=== PATIENT | female | born 1985 | race Caucasian/White ===

== ENCOUNTER 2022-12-27 08:00 | Outpatient (RCR) | payer OTHER, SELFPAY | END 2023-02-20 11:28 | disposition home or self-care (01) | PROVIDERS: PCP Physician Assistant; Visit Provider Physician Assistant | DX: M22.01 Recurrent dislocation of patella, right knee (principal); M25.561 Pain in right knee; M25.562 Pain in left knee; G89.29 Other chronic pain; M62.81 Muscle weakness (generalized); Z51.89 Encounter for other specified aftercare | CPT/HCPCS: 97110; 97112; 97161 ==

== ENCOUNTER 2023-05-17 07:23 | Day surgery (SDC) | payer OTHER, SELFPAY ==
[2023-05-17] VITALS (14 sets, daily range): BP systolic 107–137; BP diastolic 79–98; PULSE 52–69; RESP 16; TEMP 36–36.7; O2SAT 96–100; BMI 30.2
[2023-05-17] MEDS: LACTATED RINGERS 1000 ML 1,000 ML 100 ML IV (08:01)
[2023-05-17] MEDS: SODIUM CHLORIDE 0.9 % (FLUSH) 10 ML SYRINGE IVF (08:02)
[2023-05-17 08:03] LABS: Ur HCG Qualitative* Negative (Negative)
[2023-05-17] MEDS: fentaNYL 100 MCG/2 ML inj IVP (08:19)
[2023-05-17] MEDS: MIDAZOLAM HCL 1 MG/ML inj IVP (08:19)
--- NOTE | 2023-05-17 08:30 | SUR.PREOP ---
TIME?OUT:?0819 PT/RN/MDA?VERIFICATION?OF?SURGICAL?SITE,?PROCEDURE,?AND?CONSENT OBTAINED?PRIOR?TO?INVASIVE?PROCEDURE.
--- NOTE | 2023-05-17 08:45 | CRLHL7_ITS ---
For Patients: As a result of the Century Cures Act, medical imaging exams and procedure reports are released immediately into your electronic medical record. You may view this report before your referring provider. If you have questions, please contact your health care provider. Indication: ACL reconstruction Technique: One fluoroscopic image of the right knee. Fluoroscopic time 4.9 seconds. IMPRESSION: Fluoroscopic guidance for ACL reconstruction. Dictated by Sathish Lopez MD @ 05/17/2023 11:34:19 AM (Electronically Signed)
[2023-05-17] MEDS: CEFAZOLIN 2 GM in 0.9 % SODIUM CHLORIDE Mini-bag 100 ML IVPB (09:50)
--- NOTE | 2023-05-17 11:53 | W.PM.NB ---
Nerve Block Nerve Block Time Seen by Provider: 08:25 Date Seen: 05/17/23 Type of block requested by surgeon for post-operative analgesia: popliteal Side: right Time out performed: Yes Verification of patient name: Yes Verification of date of : Yes Site marking: site marked Name of person performing procedure: Hayes Continuous monitoring Was continuous monitoring of O2 sat, B/P, hospital monitor, recorded every 15 minutes?: Yes Procedure Checklist: sterile prep, needles and gloves Ultrasound guided. Images saved: Yes Medications given in 5ml increments after negative aspiration: Ropivicaine %: 0.5 mL: 20 Needle gauge: 22 Patient tolerated procedure well: Yes Additional comments: Needle noted adjacent to nerve Block Charges Block Charge (with Pro Fee): Sciatic Nerve Use of Ultrasound Machine for Block: Yes- US Guidance/pain block
--- NOTE | 2023-05-17 11:53 | W.PM.NB ---
Nerve Block Nerve Block Time Seen by Provider: 08:25 Date Seen: 05/17/23 Type of block requested by surgeon for post-operative analgesia: femoral Side: right Time out performed: Yes Verification of patient name: Yes Verification of date of : Yes Site marking: site marked Name of person performing procedure: Hayes Continuous monitoring Was continuous monitoring of O2 sat, B/P, quality assurance monitor body, recorded every 15 minutes?: Yes Procedure Checklist: sterile prep, needles and gloves Ultrasound guided. Images saved: Yes Medications given in 5ml increments after negative aspiration: Ropivicaine %: 0.5 mL: 20 Needle gauge: 20 Decadron (mg): 10 Precedex (mcg): 25 Patient tolerated procedure well: Yes Additional comments: Needle noted adjacent to nerve Block Charges Block Charge (with Pro Fee): Femoral Nerve Use of Ultrasound Machine for Block: Yes- US Guidance/pain block
--- NOTE | 2023-05-17 11:54 | W.ANESCHARGE ---
Anesthesia Charges Start Date/Time Anesthesia Start Date: 05/17/23 Anesthesia Start Time: 09:48 Stop Date/Time Anesthesia Stop Date: 05/17/23 Anesthesia Stop Time: 12:05
--- NOTE | 2023-05-17 12:04 | W.ANESCHARGE ---
Anesthesia Charges Start Date/Time Anesthesia Start Date: 05/17/23 Anesthesia Start Time: 09:48 Stop Date/Time Anesthesia Stop Date: 05/17/23 Anesthesia Stop Time: 12:05
--- NOTE | 2023-05-17 13:06 | W.PM.H&PU ---
History & Physical Update History & Physical Update H&P Reviewed and patient assessed: No changes noted
--- NOTE | 2023-05-17 13:07 | PM.ORPRC ---
Procedure Note Date of procedure: 05/17/23 Procedure: PREOPERATIVE DIAGNOSIS: 1. Right knee ACL tear, chronic with recurrent instability 2. Right knee medial and lateral meniscus tear POSTOPERATIVE DIAGNOSIS: 1. Right knee ACL tear, chronic with recurrent instability [2. Right knee medial and lateral meniscus tear PROCEDURE: 1. Right knee arthroscopically assisted ACL reconstruction with graftlink quad tendon allograft 2. Right knee arthroscopic partial medial and meniscectomy 3. [id number] - intraoperative fluoroscopy up to 1 hour. SURGEON: Kervin Gamboa M.D. TRANSPORTATION REFRIGERATION TECHNICIAN: Reji Torres. Of note, an assistant manager retail was critical for this case to aid in patient positioning, knee manipulation, instrument exchange, and closure. ANESTHESIA: General plus adductor canal block EBL: 10 mL TOURNIQUET: 80 min at 300 torr IMPLANTS: Arthrex femoral tight rope button and tibial ABS button along with a backup on the tibial fixation with a 4.75 mm peek swivelock suture anchor. COMPLICATIONS: None evident INDICATIONS: The patient is a pleasant 30-year-old female. They have experienced a right knee injury resulting in knee instability. MRI was obtained and confirmed complete ACL disruption, consistent with the physical exam. The MRI also suggested medial and lateral meniscus tear. Given the findings, as well as the patient's desire to remain physically active with cutting/pivoting type activities, surgery was recommended. FINDINGS: Exam under anesthesia revealed positive Pradip's grade 2 B. Thud-clunk pivot shift. Stable posterior drawer. Stable to varus and valgus stress at 0 and 30?. The diagnostic arthroscopy showed empty wall sign consistent with ACL disruption/deficiency. Medial tear of the meniscus was noted to be complex extending from posterior horn to midbody. Lateral meniscus tear was also noted from the posterior root region to the midbody. Posterior root itself was intact. This was more of a complex tear with some horizontal component. DESCRIPTION OF PROCEDURE: After a thorough discussion of risks, benefits, and alternatives, the patient was brought to the operating room and placed upon the operating table. Induction of anesthesia was undertaken as previously noted. 2 g IV Ancef was administered within 1 hr of incision preoperatively. Appropriate time-out was performed identifying proper patient, site, and procedure. The right lower extremity was prepped and draped in the appropriate sterile fashion using ChloraPrep. The limb was exsanguinated and tourniquet inflated. Anterolateral and anteromedial portals were established with an 11 blade, and a diagnostic arthroscopy was performed. This identified the findings as noted above. Following the diagnostic arthroscopy, a partial medial and lateral meniscectomy was performed with a combination of basket forceps, [place] cautery, and torpedo shaver. After this, the meniscus was reprobed and found be stable. We then turned our attention to the ACL reconstruction. The graft had been thawing on the back table inside the package in warm saline. Once this was properly thawed, it was prepared with the passing sutures and the femoral tight rope button. It was then placed on tension, and sized. It was approximately a 9.5+ mm diameter graft. While the graft was being prepared, simultaneously, the remaining ACL stump was debrided with a combination of shaver and basket forceps. After evaluating the current fibers of the existing ACL stump, we drilled the tunnels in an independent manner for anatomic tunnel positioning. A 9.5 mm flip cutter was utilized for the femoral tunnel and for the tibial tunnel. Tunnel length on the femur was 37 mm and on the tibia was 42 mm. After preparing the graft and drilling tunnels, the graft was passed without difficulty and the femoral button was directly visualized to exit the femoral tunnel and the button was flipped. C-arm fluoroscopic imaging confirmed proper flipping of the femoral button and was apposed against the femoral cortex. The knee was then cycled 35+ times with tension on the graft. The tibial ABS button was then placed, and the tibial sutures secured over this with the knee in full extension. The white sutures were tied over top of the button, and all 4 suture strands were backed up through 4.75 mm peek SwiveLock suture anchor. Excellent tension on the graft was achieved. A Pradip test was performed again, and found to be stable grade 1A. The graft was reprobed on the inside of the knee and again found to be taut and stable. At this stage, closure was performed with 2-0 Vicryl and 4-0 Monocryl to close the subcutaneous and subcuticular layers, respectively. Dressings were applied, tourniquet deflated, and the T scope hinged knee brace was applied. The patient was awoken from anesthesia and transferred to the PACU in stable condition. PLAN: 1. Toe-touch weightbear operative extremity. Crutch / walker ambulation assistance PRN. 2. Ice, acetominophen and/or ibuprofen, and oxycodone for pain as needed. 3. Knee range of motion and quad sets/straight leg raise regularly 4. Follow up with me in 1-2 weeks for a wound check.
== END 2023-05-17 14:00 | disposition home or self-care (01) ==
PROVIDERS: Visit Provider Orthopaedic Surgery Sports Medicine
PROC: (CPT 27428; principal; 2023-05-17 08:45)
DX: S83.511A Sprain of anterior cruciate ligament of right knee, initial encounter (principal); S83.231D Complex tear of medial meniscus, current injury, right knee, subsequent encounter; S83.271A Complex tear of lateral meniscus, current injury, right knee, initial encounter; M23.51 Chronic instability of knee, right knee; G89.18 Other acute postprocedural pain
CPT/HCPCS: 29888; 29880; 01400; 64445; 64447; 73560; 76942; 81025; 84703; C1713; C1762; J0690; J1100; J2250; J2405; J2704; J2795; J3010; J7120; L1833

== ENCOUNTER 2023-05-19 10:47 | Emergency (ER) | payer OTHER, SELFPAY ==
[2023-05-19] VITALS (12 sets, daily range): BP systolic 161; BP diastolic 101; PULSE 52–76; RESP 24; O2SAT 95–100; BMI 30.3
--- NOTE | 2023-05-19 11:21 | CRLHL7_ITS ---
For Patients: As a result of the Cures Act, medical imaging exams and procedure reports are released immediately into your electronic medical record. You may view this report before your referring provider. If you have questions, please contact your health care provider. INDICATION: Shortness of breath TECHNIQUE: Chest 1 view COMPARISON: None FINDINGS: Cardiovascular and mediastinum: Heart size and vasculature are normal in caliber and appearance. Lungs and pleural spaces: Lungs are clear. No sign of infiltrate or mass. No sign of pleural effusion. No pneumothorax. Bones and soft tissues: No significant findings. IMPRESSION: No acute findings. Dictated by Sathish Lopez MD @ 05/19/2023 12:09:20 PM (Electronically Signed)
--- NOTE | 2023-05-19 11:24 | CRLHL7_ITS ---
For Patients: As a result of the Century Cures Act, medical imaging exams and procedure reports are released immediately into your electronic medical record. You may view this report before your referring provider. If you have questions, please contact your health care provider. INDICATION: Right leg pain after ACL repair COMPARISON: None. TECHNIQUE: Gonzales-scale, color, and duplex Doppler imaging of the examined veins. Compression and augmentation attempted where anatomically and clinically feasible. FINDINGS: Laterality: Right Examined veins: Common femoral, femoral, popliteal, peroneal, posterior tibial Proximal greater saphenous The examined veins are patent with normal color Doppler flow and a normal venous waveform on duplex Doppler. There is normal compression and normal augmentation of flow. The left common femoral vein was examined for comparison and is patent with normal color Doppler flow and normal venous waveform on duplex Doppler. IMPRESSION: No deep vein thrombosis in the right lower extremity. Dictated by Darlyn Jimenez MD @ 05/19/2023 1:28:58 PM (Electronically Signed)
--- NOTE | 2023-05-19 11:26 | ED_ITS ---
HPI - General Adult General Time Seen by Provider: 11:20 Date Seen: 05/19/23 Chief complaint: Extremity Pain/Injury, Lower Stated complaint: Short of breath, R leg pain Time Seen by Provider: 05/19/23 11:15 Source: patient and RN notes reviewed Mode of arrival: ambulatory Limitations: no limitations History of Present Illness HPI narrative: Rosanne is a 38-year-old female coming in with severe right knee pain, feeling short of breath. She was at physical therapy this morning after having an ACL repair on MondayMay 17. She is on oxycodone and Tylenol, has been using some ibuprofen. She called the orthopedic service last night because her pain was uncontrolled. She did go to physical therapy this morning and they were concerned about her pain being out of proportion to what they usually see, she is feeling short of breath but absolutely no chest pain. She has had no fevers. She did have spinal anesthesia. She is not on any contraceptives, has had no personal history of thromboembolic disease. Her mother however has had strokes and has had blood clots, Rosanne is not aware that there is any known hereditary cause for this but is unaware if her mom is been tested for this. She states the service told her to increase her ibuprofen. She is due for an oxycodone soon. Discussed with her that we would try some IV pain management to see if we can get her controlled. Related Data Home Medications Medication Instructions Recorded Confirmed cetirizine 10 mg tablet 10 mg PO DAILY PRN 12/30/22 05/17/23 fluoxetine 20 mg capsule 60 mg PO DAILY 12/30/22 05/17/23 fluticasone propionate 50 2 spray intranasal DAILY 05/15/23 05/17/23 mcg/actuation nasal spray,suspension (24 Hour Allergy Relief) naphazoline 0.025 %-pheniramine 1 drp ophthalmic (eye) QID PRN 05/15/23 05/17/23 0.3 % eye drops (Naphcon-A) tizanidine 4 mg capsule 4 mg PO Q6H PRN 05/15/23 05/17/23 Previous Rx's Medication Instructions Recorded oxycodone 5 mg tablet 5 mg PO Q4-8H PRN pain #25 tabs 05/17/23 hydromorphone 2 mg tablet 2 mg PO Q4-6H PRN pain #20 tabs 05/19/23 (Dilaudid) ketorolac 10 mg tablet 10 mg PO Q6H 5 days #20 tabs 05/19/23 ondansetron 4 mg disintegrating 4 mg PO Q6H PRN nausea and 05/19/23 tablet vomiting #20 tabs ondansetron 4 mg disintegrating 4 mg PO Q8H PRN nausea #20 tabs 05/19/23 tablet Allergies Allergy/AdvReac Type Severity Reaction Status Date / Time No Known Drug Allergies Allergy Verified 05/17/23 07:36 Review of Systems Status of ROS: Reports: 6 or more systems reviewed and unremarkable except as noted in History and below [facility] Medical History Anxiety ?F41.9 - Anxiety disorder, unspecified (ICD-10) Transfusion of blood during current hospitalization Severe pre-eclampsia affecting childbirth ?O14.14 - Severe pre-eclampsia complicating childbirth (ICD-10) hemorrhage ?O72.1 - Other immediate hemorrhage (ICD-10) Generalized anxiety disorder ?F41.1 - Generalized anxiety disorder (ICD-10) Dermoid cyst of both ovaries ?D27.0 - Benign neoplasm of right ovary (ICD-10) ?D27.1 - Benign neoplasm of left ovary (ICD-10) Arrest of dilation, delivered, current hospitalization ?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.1 - 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) Anemia due to acute blood loss ?D62 - Acute posthemorrhagic anemia (ICD-10) Depression ?F32.A - Depression, unspecified (ICD-10) Hypertension ?I10 - Essential (primary) hypertension (ICD-10) Surgical History Previous section ?Z98.891 - History of uterine scar from previous surgery (ICD-10) Status post primary low transverse section (06/19/21) ?Z98.891 - History of uterine scar from previous surgery (ICD-10) Status post ovarian cystectomy (06/19/21) ?Z98.890 - Other specified postprocedural states (ICD-10) ?Z87.42 - Personal history of other diseases of the female genital tract (ICD-10) Status post left oophorectomy (06/19/21) ?Z90.721 - Acquired absence of ovaries, unilateral (ICD-10) Family History Other Stroke Social History Smoking Status: Current every day smoker Do you use any of these nicotine containing products: Vaping Products How often do you have a drink containing alcohol: 2-4 times a month How many standard drinks containing alcohol do you have on a typical day: 3 or 4 How often do you have six or more drinks on one occasion: Never AUDIT-C Alcohol total score: 3 Non-prescribed substance use: marijuana (any form) Are you using contraception or practicing any form of control: No Exam Const: Vital Signs, click to edit/add: Vital Signs - 24 hr 05/19/23 10:52 05/19/23 11:55 05/19/23 12:00 Pulse Rate 59 L 55 L Pulse Rate [Pulse Oximeter] 76 Respiratory Rate 24 Blood Pressure [Ri ght Upper Arm] 161/101 H Pulse Oximetry 100 100 97 Oxygen Delivery Me thod Room Air 05/19/23 12:15 05/19/23 12:30 05/19/23 12:45 Pulse Rate 54 L 57 L 57 L Pulse Rate [Pulse Oximeter] Respiratory Rate Blood Pressure [Ri ght Upper Arm] Pulse Oximetry 95 97 98 Oxygen Delivery Me thod 05/19/23 13:16 05/19/23 13:30 05/19/23 13:45 Pulse Rate 74 52 L 55 L Pulse Rate [Pulse Oximeter] Respiratory Rate Blood Pressure [Ri ght Upper Arm] Pulse Oximetry 100 97 95 Oxygen Delivery Me thod Rosanne is a 38-year-old female that is alert interactive, no apparent distress but does not look comfortable. With movement she seems to have increased discomfort, states it is in her right leg. She is able to speak in complete sentences, oxygenating at 100% on room air while I am in with her. Speech is normal, no hoarseness. Sclera clear, conjugate gaze with equal pupils. Symmetrical facial function. No jugular venous distension, no neck masses. Is able to sit up, lungs sound clear, no wheezing or crackles, CV regular rate and rhythm without murmur. Abdomen is soft, nontender, nondistended, no masses noted. She has a brace on her right lower extremity, knee does look swollen but is not erythematous the port sites have bandages over them and there is no sig nificant drainage that AC through the bandages. Right lower extremity maybe is a little bit more swollen when I compare to the left but no erythema, distal vascularity and sensation is normal. Documenting provider has reviewed patient's vital signs: yes Course Course ED Course: We will start with a portable chest x-ray, she is reassuring with her oxygenation and she is not tachycardic. Will ultrasound her right lower extremity, get appropriate labs. We will place an IV, have her monitored on pulse oximetry. Will get a baseline EKG and will do a troponin in case there is thromboembolic disease to rule out or in any possibility of right heart strain. Other possibilities are possible hemidiaphragm elevation, side effects of the narcotics. She will get IV Toradol, IV Dilaudid to see if this will help control her pain. Doubtful that there is any infectious etiology at this point, she is quite early from surgery and clinically does not have any symptomatology of this. Reevaluation(s) Time of Reevaluation #1: 12:50 Reevaluation #1: Have reviewed reassuring labs, negative ultrasound preliminarily per the sports athletic trainer for DVT in her right lower extremity. We did review that her D-dimer was elevated, this can be from surgery but I cannot rule out an underlying pulmonary embolus. Without DVT in her right lower extremity, no hypoxia, no tachycardia, it is not very likely that she has an underlying pulmonary embolism. We did discuss the rationale of proceeding with chest CT PE protocol verses observation. To completely rule out any thromboembolic disease, patient would like to proceed. Will order the chest CT PE protocol. She still has some pain in her leg but is feeling much better after the IV Dilaudid and Toradol. Will try to talk to Orthopedics about her pain management. Nursing staff had been questioned by her as to better anti nausea medicine at home as well. Overall, she really just does not feel the oxycodone is helping her much and gives her nausea per report from nursing staff. Time of Reevaluation #2: 14:37 Reevaluation #2: Have reviewed her negative chest CT for any PE or other issues. She will ice when she gets home, have discussed pain management with her. Have stressed the importance that were going to switch to dilaudid for more severe pain right now, she has not use the oxycodone with this. We did discuss risk of diminishing respiratory drive and from narcotic overdose. She does demonstrate understanding I do trust that she will not use the oxycodone with the dilaudid. Her shortness of breath has improved with pain management interestingly. Consultations Consultation #1: Spoke with Reji NICHOLE from orthopedics, discussed pain management. He agrees with switching to dilaudid short term, I did agree to give 20 tabs short term for this as we have reviewed this together as part of her comprehensive care. Time: 13:11 Vital Signs Vital signs: Initial Vital Signs Pulse Rate 76 05/19/23 10:52 Pulse Rhythm Regular 05/19/23 10:52 Respiratory Rate 24 05/19/23 10:52 Blood Pressure 161/101 H 05/19/23 10:52 Blood Pressure Mean 121 H 05/19/23 10:52 Pulse Oximetry 100 05/19/23 10:52 Oxygen Delivery Method Room Air 05/19/23 10:52 Vital Signs Pulse Rate 76 05/19/23 10:52 Respiratory Rate 24 05/19/23 10:52 Blood Pressure 161/101 H 05/19/23 10:52 Pulse Oximetry 100 05/19/23 10:52 Oxygen Delivery Method Room Air 05/19/23 10:52 Pulse Rate 55 L 05/19/23 13:45 Respiratory Rate 24 05/19/23 10:52 Blood Pressure 161/101 H 05/19/23 10:52 Pulse Oximetry 95 05/19/23 13:45 Oxygen Delivery Method Room Air 05/19/23 10:52 Medical Decision Making Lab Data Lab results reviewed: Yes I reviewed the patient's lab results Labs: Lab Results 05/19/23 05/19/23 Range/Units 11:35 11:40 WBC 8.09 (4.50-11.00) K/uL RBC 4.51 (4.00-5.20) m/uL Hgb 13.5 (12.0-16.0) gm/dL Hct 40.0 (33.0-51.0) % MCV 89 (80-100) fL MCH 30 (26-34) pg MCHC 34 (32-36) gm/dL RDW Coeff of Destiny 12.5 (11.5-15.5) % Plt Count 266 (140-440) K/uL Neut % (Auto) 69.3 (42.0-72.0) % Lymph % (Auto) 18.9 L (20-44) % [place] % (Auto) 9.3 (0.0-11.0) % Eos % (Auto) 1.1 (0.0-7.0) % Baso % (Auto) 0.5 (0.0-3.0) % Neut # (Auto) 5.61 (1.7-7.0) K/uL Lymph # (Auto) 1.50 (0.90-2.90) K/uL [place] # (Auto) 0.80 (0.00-0.90) K/UL Eos # (Auto) 0.09 (0.00-0.50) K/uL Baso # (Auto) 0.04 (0.00-0.30) K/uL Abs Immat Gran (auto) 0.07 (0.00-0.30) K/uL Imm/Tot Granulo (auto) 0.9 % D-Dimer Quant (PE/DVT) 0.79 H (0.00-0.50) ug/ml Sodium 136 (135-149) mmol/L Potassium 3.9 (3.6-5.1) mmol/L Chloride 101 (96-114) mmol/L Carbon Dioxide 29 (20-32) mmol/L Anion Gap 6 L (7-15) mEq/L BUN 14 (5-24) mg/dL Creatinine 0.7 (0.5-1.5) mg/dL Estimated Creat Clear 121.79 Estimated GFR 113 ml/min Glucose 90 (60-115) mg/dL Calcium 9.3 (8.4-10.6) mg/dL Total Bilirubin 0.6 (0.1-1.5) mg/dL AST 23 (12-35) U/L ALT 19 (4-35) U/L Alkaline Phosphatase 51 (40-150) U/L Total Protein 7.1 (6.0-8.3) g/dL Albumin 4.2 (3.3-5.0) g/dL POC Troponin I 0.00 L (0.01-0.04) ng/ml Imaging Data Venous US: Attestation: I have reviewed the pertinent imaging results. Radiologist's impression: Patient: [facility] Facility:?[facility] Patient ID:?[id number] Site Patient ID:?[id number]. Site :?1985 Study:?US Extremity Right LEV-05/19/2023 12:55:30 PM Ordering Physician:?Romel Moy Final Report: INDICATION: Right leg pain after ACL repair COMPARISON: None. TECHNIQUE: Gonzales-scale, color, and duplex Doppler imaging of the examined veins. Compression and augmentation attempted where anatomically and clinically feasible. FINDINGS: Laterality: Right Examined veins: Common femoral, femoral, popliteal, peroneal, posterior tibial Proximal greater saphenous The examined veins are patent with normal color Doppler flow and a normal venous waveform on duplex Doppler. There is normal compression and normal augmentation of flow. The left common femoral vein was examined for comparison and is patent with normal color Doppler flow and normal venous waveform on duplex Doppler. IMPRESSION: No deep vein thrombosis in the right lower extremity. Dictated by Darlyn Jimenez MD @ 05/19/2023 1:28:58 PM (Electronic Signature) CT scan - chest: Attestation: I have reviewed the pertinent imaging results. Radiologist's impression: Patient: [facility] Facility:?[facility] Patient ID:?[id number] Site Patient ID:?[id number]. Site :?1985 Study:?CT Chest Angio W/ 95CC ISOVUE 370 PE STUDY-05/19/2023 1:23:26 PM Ordering Physician:?Romel Moy Final Report: INDICATION: SOB, elevated d-dimer. s/p acl surgery. TECHNIQUE: CT chest PE was acquired with 95 cc Isovue 370 IV contrast. COMPARISON: None. FINDINGS: Heart and vasculature: Contrast opacification of the pulmonary arterial tree is adequate. No sign of pulmonary embolism. Heart size is normal. Thoracic aorta and pulmonary artery are normal in caliber. Lungs and pleura: No suspicious nodules or infiltrates. No pleural effusions, pleural thickening, or pneumothorax. Lymph nodes/mediastinum: No mediastinal, hilar, or axillary adenopathy. Chest wall: No masses. Upper abdomen: No acute or significant findings. Bones: Unremarkable for age. IMPRESSION: No pulmonary embolism identified. No acute cardiopulmonary process identified. Please note that all CT scans at this facility use dose modulation, iterative reconstruction, and/or weight-based dosing when appropriate to reduce radiation dose to as low as reasonably achievable. Dictated by Danica Alonzo MD @ 05/19/2023 2:12:33 PM (Electronic Signature) ECG Data Attestation: I personally reviewed and interpreted this ECG as follows: (Sinus bradycardia, 52 beats per minute, no ischemia or arrhythmia noted. QT corrected 4 and 22 milliseconds.) Prior ECG tracings: not available for review Discharge Plan Discharge Clinical Impression: Shortness of breath, Post-operative pain Patient Disposition: Home, Self-Care Condition: Stable Instructions: Pain Management After Surgery (DC) Additional Instructions: Do recommend ice to this knee and elevation, certainly follow the postoperative recommendations from your surgeon. Tylenol 1000 mg 3 times daily baseline for pain. We are going to switch you to Toradol and dilaudid initially for more severe pain. Once you are done with the dilaudid and the Toradol, can switch back to oxycodone and ibuprofen. Toradol is an NSAID, do not use with other forms of NSAIDs like ibuprofen or Aleve. As we discussed, it is imperative that you do not use the dilaudid and the oxycodone together. Once you are done with the dilaudid, can go back on the oxycodone. Use Zofran as needed to control nausea. Narcotics certainly can be constipating. Do recommend going on MiraLax 17 g daily while using narcotics and add in senna per package instructions if needed to help control constipation. Activity Detail: Per surgery discharge. Prescriptions: New ketorolac 10 mg tablet 10 mg PO Q6H 5 Days Qty: 20 0RF ondansetron 4 mg tablet,disintegrating 4 mg PO Q6H PRN (Reason: nausea and vomiting) Qty: 20 0RF hydromorphone [Dilaudid] 2 mg tablet 2 mg PO Q4-6H PRN (Reason: pain) Qty: 20 0RF No Action cetirizine 10 mg tablet 10 mg PO DAILY PRN fluoxetine 20 mg capsule 60 mg PO DAILY fluticasone propionate [24 Hour Allergy Relief] 50 mcg/actuation spray,suspension 2 spray intranasal DAILY Rx Instructions: administer into each nostril tizanidine 4 mg capsule 4 mg PO Q6H PRN Rx Instructions: do not exceed 3 doses per 24 hrs Naphcon-A 0.025-0.3 % drops 1 drp ophthalmic (eye) QID PRN oxycodone 5 mg tablet 5 mg PO Q4-8H PRN (Reason: pain) Qty: 25 0RF ondansetron 4 mg tablet,disintegrating 4 mg PO Q8H PRN (Reason: nausea) Qty: 20 2RF Follow Up/Referrals: Provider,Not a Local [Primary Care Provider] - Stand Alone Forms: [employer] Info Instructions
[2023-05-19] MEDS: HYDROmorphone 0.5 mg/0.5 ml inj IVP ×2 (11:38→14:49)
[2023-05-19] MEDS: KETOROLAC 15 MG/ML inj IVP (11:38)
[2023-05-19] MEDS: ONDANSETRON 2 MG/ML inj 4 MG IVP (11:47)
[2023-05-19 12:02] LABS: Basophils Absolute Auto 0.04 K/uL (0.00-0.30); Basophils Percent Auto 0.5 % (0.0-3.0); Eosinophils Absolute Auto 0.09 K/uL (0.00-0.50); Eosinophils Percent Auto 1.1 % (0.0-7.0); Hemoglobin* 13.5 gm/dL (12.0-16.0); Immature Granulocytes Abs Auto 0.07 K/uL (0.00-0.30); Immature Granulocytes Pct Auto 0.9 %; Lymphocytes Percent Auto 18.9 % (20-44); Mean Corpuscular HGB Conc 34 gm/dL (32-36); Mean Corpuscular Hemoglobin 30 pg (26-34); Mean Corpuscular Volume 89 fL (80-100); Monocytes Percent Auto 9.3 % (0.0-11.0); Neutrophils Absolute Auto 5.61 K/uL (1.7-7.0); Neutrophils Percent Auto 69.3 % (42.0-72.0); Platelet Count* 266 K/uL (140-440); RDW Coefficient of Variation % 12.5 % (11.5-15.5); Red Blood Count 4.51 m/uL (4.00-5.20); White Blood Count* 8.09 K/uL (4.50-11.00)
[2023-05-19 12:06] LABS: Slide Review Reflex No
[2023-05-19 12:10] LABS: Albumin* 4.2 g/dL (3.3-5.0); Chloride* 101 mmol/L (96-114)
[2023-05-19 12:11] LABS: Potassium* 3.9 mmol/L (3.6-5.1); Sodium* 136 mmol/L (135-149)
[2023-05-19 12:13] LABS: Anion Gap 6 mEq/L (7-15); Aspartate Amino Transferase* 23 U/L (12-35); Bilirubin Total* 0.6 mg/dL (0.1-1.5); Carbon Dioxide* 29 mmol/L (20-32); Creatinine* 0.7 mg/dL (0.5-1.5); D Dimer Quantitative* 0.79 ug/ml (0.00-0.50); Est. Creatinine Clearance* 121.79; Estimated Glomerular Filt Rate 113 ml/min; Total Protein* 7.1 g/dL (6.0-8.3)
[2023-05-19 12:14] LABS: Alanine Aminotransferase* 19 U/L (4-35); Alkaline Phosphatase* 51 U/L (40-150); Blood Urea Nitrogen* 14 mg/dL (5-24); Calcium* 9.3 mg/dL (8.4-10.6); Glucose* 90 mg/dL (60-115)
--- NOTE | 2023-05-19 12:52 | CRLHL7_ITS ---
For Patients: As a result of the Century Cures Act, medical imaging exams and procedure reports are released immediately into your electronic medical record. You may view this report before your referring provider. If you have questions, please contact your health care provider. INDICATION: SOB, elevated d-dimer. s/p acl surgery. TECHNIQUE: CT chest PE was acquired with 95 cc Isovue 370 IV contrast. COMPARISON: None. FINDINGS: Heart and vasculature: Contrast opacification of the pulmonary arterial tree is adequate. No sign of pulmonary embolism. Heart size is normal. Thoracic aorta and pulmonary artery are normal in caliber. Lungs and pleura: No suspicious nodules or infiltrates. No pleural effusions, pleural thickening, or pneumothorax. Lymph nodes/mediastinum: No mediastinal, hilar, or axillary adenopathy. Chest wall: No masses. Upper abdomen: No acute or significant findings. Bones: Unremarkable for age. IMPRESSION: No pulmonary embolism identified. No acute cardiopulmonary process identified. Please note that all CT scans at this facility use dose modulation, iterative reconstruction, and/or weight-based dosing when appropriate to reduce radiation dose to as low as reasonably achievable. Dictated by Danica Alonzo MD @ 05/19/2023 2:12:33 PM (Electronically Signed)
== END 2023-05-19 15:05 | disposition home or self-care (01) ==
PROVIDERS: Emergency Provider Family Medicine
DX: R06.02 Shortness of breath (principal); G89.18 Other acute postprocedural pain
CPT/HCPCS: 36415; 71045; 71275; 80053; 84484; 85025; 85379; 93005; 93971; 94761; 96374; 96375; 99284; 99285; J1170; J1885; J2405; Q9967

== ENCOUNTER 2023-05-26 10:06 | Outpatient (CLI) | payer OTHER, SELFPAY | END 2023-05-26 10:07 | disposition home or self-care (01) | PROVIDERS: Visit Provider Obstetrics & Gynecology | DX: N92.6 Irregular menstruation, unspecified (principal) | CPT/HCPCS: 82627; 82670; 83001; 83002; 83498; 84146; 84443 ==

== ENCOUNTER 2023-06-01 10:55 | Outpatient (CLI) | payer OTHER, SELFPAY ==
--- NOTE | 2023-06-01 11:00 | CRLHL7_ITS ---
For Patients: As a result of the Century Cures Act, medical imaging exams and procedure reports are released immediately into your electronic medical record. You may view this report before your referring provider. If you have questions, please contact your health care provider. INDICATION: irregular menses COMPARISON: none TECHNIQUE: 2D simmons scale and color Doppler images were acquired of the pelvis using a transabdominal and transvaginal approach. FINDINGS: Sonographic images demonstrate a normal size and smooth outer contour of the uterus. Uterus measures 7.1 cm in length by 3.8 cm in AP diameter by 5.2 cm in transverse dimension. The myometrium has a normal uniform echotexture. The endometrial lining appears heterogeneous and measures 14 mm in composite thickness. The right ovary measures 5.7 x 2.8 x 3.9 cm in size and the left ovary is absent. The right ovary demonstrates normal arterial and venous blood flow on color Doppler analysis. Complex cyst is present within the right ovary containing internal echoes measuring 3.2 x 2.5 x 3.7 cm. Simple anechoic right ovarian cyst also present measuring 4.3 x 2.0 x 3.7 cm. There are no suspicious fluid collections within the cul-de-sac. IMPRESSION: Thickened and mildly heterogeneous endometrium measuring 14 millimeters. Hemorrhagic right ovarian cyst measuring 3.7 cm. Simple right ovarian cyst measuring 4.3 cm. Dictated by Sathish Lopez MD @ 06/01/2023 12:07:15 PM (Electronically Signed)
== END 2023-06-01 10:56 | disposition home or self-care (01) ==
LOC: US 10:55
PROVIDERS: Visit Provider Obstetrics & Gynecology
DX: N92.6 Irregular menstruation, unspecified (principal); R93.89 Abnormal findings on diagnostic imaging of other specified body structures; N83.201 Unspecified ovarian cyst, right side; Z86.018 Personal history of other benign neoplasm
CPT/HCPCS: 76830; 76856; 93976

== ENCOUNTER 2023-06-06 08:05 | Emergency (ER) | payer OTHER, SELFPAY ==
[2023-06-06 08:09] VITALS: BP 144/106; PULSE 93; RESP 14; TEMP 35.7; O2SAT 99; BMI 33.5
--- NOTE | 2023-06-06 08:59 | CRLHL7_ITS ---
For Patients: As a result of the Century Cures Act, medical imaging exams and procedure reports are released immediately into your electronic medical record. You may view this report before your referring provider. If you have questions, please contact your health care provider. INDICATION: Severe back pain. Radiculopathy. Recent spinal anesthesia. TECHNIQUE: Multiplanar multisequence noncontrast MR images acquired through the lumbar spine. COMPARISON: None. FINDINGS: Transitional lumbosacral anatomy. For purposes of this exam, the transitional segment is designated S1 and demonstrates lumbarization. Rudimentary S1-2 disc space. The lumbar lordosis is preserved. Vertebral heights maintained. No acute fracture or spondylolisthesis. No T1 hypointense marrow replacing lesions. Normal conus terminates at L1-2. T12-L1 through L4-5: No spinal canal or neural foraminal narrowing. L5-S1: Moderate disc degeneration. Disc height loss. [id number] vertebral body edema. Right central/subarticular disc protrusion measuring 9 mm in anteroposterior dimension severely narrows the right lateral recess with likely impingement of traversing right S1 nerve roots. Mild spinal canal narrowing. No neural foraminal narrowing. Cholelithiasis. IMPRESSION: 1. Transitional lumbosacral anatomy. For purposes of this exam, the transitional segment is designated S1 and demonstrates lumbarization. Rudimentary S1-2 disc space. 2. At L5-S1, right central/subarticular disc protrusion likely impinges traversing right S1 nerve roots. Mild spinal canal narrowing. Mild to moderate discogenic vertebral body edema. 3. Cholelithiasis. Dictated by Aditya Giron MD @ 06/06/2023 12:23:28 PM (Electronically Signed)
[2023-06-06] MEDS: MORPHINE 4 MG/ML INJ IM (09:09)
[2023-06-06] MEDS: KETOROLAC 30 MG/ML inj IM (09:11)
[2023-06-06 10:29] VITALS: BP 135/80; PULSE 51; RESP 16; O2SAT 97
--- NOTE | 2023-06-06 10:34 | ED.NURSE ---
Pt reports pain is improved, rates as 7/10 now.
--- NOTE | 2023-06-06 11:08 | ED.NURSE ---
Pt to imaging, MRI questionnaire complete.
--- NOTE | 2023-06-06 11:17 | ED.GENADULT ---
HPI - General Adult General Date Seen: 06/06/23 Chief complaint: Back Injury/Pain Stated complaint: back pain Time Seen by Provider: 06/06/23 08:29 Source: patient Mode of arrival: ambulatory Limitations: no limitations History of Present Illness HPI narrative: Patient is a 38-year-old who had an ACL repair recently, had had trouble with pain in her knee but it is feeling better. She had spinal anesthesia for that procedure which was I believe on May 17. She says for the past week and a half for so she has been having trouble with back pain in the right low back with radiation down her leg into her toes. No numbness or weakness. No fevers. She says she had trouble with back pain prior to this but did not have leg pain previously. Over the past week and half she says the pain has become severe to the point that she is just not able to manage it. She was on Dilaudid for pain control after her knee procedure because oxycodone was not helping, she says she has some tizanidine left at home but does not have any more narcotics left. Her last prescription was on May 29 for 7 Dilaudid 2 mg tablets. Review of the database she has several prescriptions since her knee procedure but does not have any other narcotic prescriptions. Related Data Home Medications Medication Instructions Recorded Confirmed cetirizine 10 mg tablet 10 mg PO DAILY PRN 12/30/22 05/26/23 fluoxetine 20 mg capsule 60 mg PO DAILY 12/30/22 05/26/23 fluticasone propionate 50 2 spray intranasal DAILY 05/15/23 05/26/23 mcg/actuation nasal spray,suspension (24 Hour Allergy Relief) tizanidine 4 mg capsule 4 mg PO Q6H PRN 05/15/23 06/06/23 Previous Rx's Medication Instructions Recorded ketorolac 10 mg tablet 10 mg PO Q6H 5 days #20 tabs 05/19/23 ondansetron 4 mg disintegrating 4 mg PO Q8H PRN nausea #20 tabs 05/19/23 tablet tizanidine 4 mg capsule 4 mg PO BID PRN muscle spasticity 06/06/23 #10 caps Allergies Allergy/AdvReac Type Severity Reaction Status Date / Time No Known Drug Allergies Allergy Verified 05/26/23 08:50 Review of Systems Status of ROS: Reports: 6 or more systems reviewed and unremarkable except as noted in History and below [facility] Medical History (Updated 06/06/23 @ 12:53 by Nisha De La Paz MD) Anxiety ?F41.9 - Anxiety disorder, unspecified (ICD-10) Transfusion of blood during current hospitalization Severe pre-eclampsia affecting childbirth ?O14.14 - Severe pre-eclampsia complicating childbirth (ICD-10) hemorrhage ?O72.1 - Other immediate hemorrhage (ICD-10) Generalized anxiety disorder ?F41.1 - Generalized anxiety disorder (ICD-10) Dermoid cyst of both ovaries ?D27.0 - Benign neoplasm of right ovary (ICD-10) ?D27.1 - Benign neoplasm of left ovary (ICD-10) Arrest of dilation, delivered, current hospitalization ?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Z98.890 - Other specified postprocedural states (ICD-10) ?Z87.42 - Personal history of other diseases of the female genital tract (ICD-10) Status post left oophorectomy (06/19/21) ?Z90.721 - Acquired absence of ovaries, unilateral (ICD-10) Family History Other Stroke Social History Smoking Status: Current every day smoker Do you use any of these nicotine containing products: Vaping Products How often do you have a drink containing alcohol: 2-4 times a month How many standard drinks containing alcohol do you have on a typical day: 3 or 4 How often do you have six or more drinks on one occasion: Never AUDIT-C Alcohol total score: 3 Non-prescribed substance use: marijuana (any form) Are you using contraception or practicing any form of control: No Exam Narrative: Exam Narrative: Vital signs as noted above. In general, an alert, well-appearing patient. Head: Normocephalic, atraumatic. Eyes: Pupils are equal reactive. Extraocular movements are full. Conjunctivae are normal. ENT: Mucous membranes are moist. Neck: Supple without lymphadenopathy. Heart: Regular rate and rhythm. No murmur or rub. Lungs: Clear bilaterally. No increased work of breathing, crackles or wheezes. Abdomen: Soft and nontender. No organomegaly. Extremities: Well perfused. No edema. No calf tenderness. Pulses intact. Brace noted on right knee. Neurologic: Patient is alert and oriented to person and place. Speech is fluent. Face is symmetric. Moves all extremities equally. Strength is 5 of 5 in bilateral lower extremities. Sensation is altered in the right leg, which she says is been present since surgery and is gradually improving. Affect: Normal. Skin: Warm and dry. Well perfused. Const: Vital Signs, click to edit/add: Vital Signs - 24 hr 06/06/23 08:09 06/06/23 10:29 06/06/23 12:10 Temperature 96.3 F L Pulse Rate [Pulse Oximeter] 93 51 L 61 Respiratory Rate 14 16 16 Blood Pressure [Ri ght Upper Arm] 144/106 H 135/80 136/82 Pulse Oximetry 99 97 98 Oxygen Delivery Me thod Room Air Room Air Room Air Documenting provider has reviewed patient's vital signs: yes Course Course ED Course: I gave IM morphine and IM Toradol. I elected to do a lumbar spine MRI today secondary to her symptoms of radiculopathy and recent spinal anesthesia. By my review the MRI showed disc herniation at L5-S1, final radiology read as follows:IMPRESSION: 1. Transitional lumbosacral anatomy. For purposes of this exam, the transitional segment is designated S1 and demonstrates lumbarization. Rudimentary S1-2 disc space. 2. At L5-S1, right central/subarticular disc protrusion likely impinges traversing right S1 nerve roots. Mild spinal canal narrowing. Mild to moderate discogenic vertebral body edema. 3. Cholelithiasis. I do think this is likely the explanation for her pain. There are no concerning findings other than the disc. I have recommended pain management with ibuprofen and Tylenol 3 times daily, I gave her 10 additional oxycodone to use judiciously and gave her some additional tizanidine as well. I also recommended that we try another course of steroid which she is willing to do. We talked about the possibility of an injection being helpful if she does not seem to be improving with time. She is interested in looking into that so I have asked her to follow-up in clinic at some point this week to review options. Return for weakness, numbness, bowel bladder changes. Vital Signs Vital signs: Initial Vital Signs Temperature 96.3 F L 06/06/23 08:09 Temperature Source Temporal Artery Scan 06/06/23 08:09 Pulse Rate 93 06/06/23 08:09 Pulse Rhythm Regular 06/06/23 08:09 Respiratory Rate 14 06/06/23 08:09 Blood Pressure 144/106 H 06/06/23 08:09 Blood Pressure Mean 118 H 06/06/23 08:09 Blood Pressure Position Sitting 06/06/23 08:09 Pulse Oximetry 99 06/06/23 08:09 Oxygen Delivery Method Room Air 06/06/23 08:09 Vital Signs Temperature 96.3 F L 06/06/23 08:09 Pulse Rate 93 06/06/23 08:09 Respiratory Rate 14 06/06/23 08:09 Blood Pressure 144/106 H 06/06/23 08:09 Pulse Oximetry 99 06/06/23 08:09 Oxygen Delivery Method Room Air 06/06/23 08:09 Temperature 96.3 F L 06/06/23 08:09 Pulse Rate 61 06/06/23 12:10 Respiratory Rate 16 06/06/23 12:10 Blood Pressure 136/82 06/06/23 12:10 Pulse Oximetry 98 06/06/23 12:10 Oxygen Delivery Method Room Air 06/06/23 12:10 Discharge Plan Discharge Clinical Impression: Lumbar disc herniation Patient Disposition: Home, Self-Care Condition: Improved Instructions: Lumbar Disc Herniation (ED) Additional Instructions: Ibuprofen 400 mg plus Tylenol 1000 mg 3 times daily with food. Oxycodone if needed for more significant pain. Tizanidine may be helpful at night. Please make an appointment to follow up with the [facility] to discuss further options such as injection. Prescriptions: New tizanidine 4 mg capsule 4 mg PO BID PRN (Reason: muscle spasticity) Qty: 10 0RF No Action cetirizine 10 mg tablet 10 mg PO DAILY PRN fluoxetine 20 mg capsule 60 mg PO DAILY fluticasone propionate [24 Hour Allergy Relief] 50 mcg/actuation spray,suspension 2 spray intranasal DAILY Rx Instructions: administer into each nostril tizanidine 4 mg capsule 4 mg PO Q6H PRN Rx Instructions: do not exceed 3 doses per 24 hrs ketorolac 10 mg tablet 10 mg PO Q6H 5 Days Qty: 20 0RF ondansetron 4 mg tablet,disintegrating 4 mg PO Q8H PRN (Reason: nausea) Qty: 20 2RF Follow Up/Referrals: Provider,Not a Local [Primary Care Provider] - Stand Alone Forms: [email or web address] Info Instructions
[2023-06-06 12:10] VITALS: BP 136/82; PULSE 61; RESP 16; O2SAT 98
[2023-06-06] MEDS: predniSONE 20 MG TABLET 60 MG PO (12:49)
[2023-06-06] MEDS: OXYCODONE 5 MG TABLET PO (12:49)
== END 2023-06-06 13:01 | disposition home or self-care (01) ==
PROVIDERS: Emergency Provider Emergency Medicine
DX: M51.26 Other intervertebral disc displacement, lumbar region (principal)
CPT/HCPCS: 72148; 96372; 97110; 97140; 99284; A9270; J1885; J2270; J7512

== ENCOUNTER 2023-06-15 18:52 | Emergency (ER) | payer OTHER, SELFPAY ==
[2023-06-15 19:13] VITALS: BP 148/107; PULSE 73; RESP 18; TEMP 36.4; O2SAT 98; BMI 29.3
--- NOTE | 2023-06-15 19:31 | CRLHL7_ITS ---
For Patients: As a result of the Cures Act, medical imaging exams and procedure reports are released immediately into your electronic medical record. You may view this report before your referring provider. If you have questions, please contact your health care provider. Indication: Right lateral malleolus pain. Technique: Right ankle three views. Comparison: None. Findings: No acute fracture or dislocation. No additional osseous abnormality. Soft tissues as imaged are unremarkable. Impression: No acute osseous abnormality. Dictated by Jamin Gomez MD @ 06/15/2023 8:08:11 PM (Electronically Signed)
[2023-06-15] MEDS: MORPHINE 4 MG/ML INJ IM (19:54)
--- NOTE | 2023-06-15 20:27 | ED.LOWEXIN ---
HPI - Extremity Injury (Lower) General Date Seen: 06/15/23 Chief Complaint: Extremity Pain/Injury, Lower Stated Complaint: Possible blood clot R foot Time Seen by Provider: 06/15/23 19:19 Source: patient Mode of arrival: ambulatory Limitations: no limitations History of Present Illness HPI Narrative: Patient is a 38-year-old female presenting to emergency department for right ankle pain. Of note she had a right ACL repaired 4 months ago states since then she has been having issues with pain to her right ankle also. She has been doing PT and has been having a large amount of pain to it. Most of the pain is is at the lateral malleolus. She was concerned she could be having a blood clot because she says her right foot feels notably cold compared to the left. There is some swelling around the ankle. Says it does feel tingly but this has been going on since the surgery. She did have an ultrasound performed almost 4 weeks ago that was normal. Denies any other injuries that she is aware of. Related Data Home Medications Medication Instructions Recorded Confirmed cetirizine 10 mg tablet 10 mg PO DAILY PRN 12/30/22 05/26/23 fluoxetine 20 mg capsule 60 mg PO DAILY 12/30/22 05/26/23 fluticasone propionate 50 2 spray intranasal DAILY 05/15/23 05/26/23 mcg/actuation nasal spray,suspension (24 Hour Allergy Relief) tizanidine 4 mg capsule 4 mg PO Q6H PRN 05/15/23 06/06/23 Previous Rx's Medication Instructions Recorded ketorolac 10 mg tablet 10 mg PO Q6H 5 days #20 tabs 05/19/23 ondansetron 4 mg disintegrating 4 mg PO Q8H PRN nausea #20 tabs 05/19/23 tablet tizanidine 4 mg capsule 4 mg PO BID PRN muscle spasticity 06/06/23 #10 caps Allergies Allergy/AdvReac Type Severity Reaction Status Date / Time No Known Drug Allergies Allergy Verified 05/26/23 08:50 Review of Systems Narrative: Otherwise negative unless stated in HPI PFSH PFSH Medical History Anxiety ?F41.9 - Anxiety disorder, unspecified (ICD-10) Transfusion of blood during current hospitalization Severe pre-eclampsia affecting childbirth ?O14.14 - Severe pre-eclampsia complicating childbirth (ICD-10) hemorrhage ?O72.1 - Other immediate hemorrhage (ICD-10) Generalized anxiety disorder ?F41.1 - Generalized anxiety disorder (ICD-10) Dermoid cyst of both ovaries ?D27.0 - Benign neoplasm of right ovary (ICD-10) ?D27.1 - Benign neoplasm of left ovary (ICD-10) Arrest of dilation, delivered, current hospitalization ?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Z98.890 - Other specified postprocedural states (ICD-10) ?Z87.42 - Personal history of other diseases of the female genital tract (ICD-10) Status post left oophorectomy (06/19/21) ?Z90.721 - Acquired absence of ovaries, unilateral (ICD-10) Family History Other Stroke Social History Smoking Status: Current every day smoker Do you use any of these nicotine containing products: Vaping Products Second hand tobacco smoke exposure: No How often do you have a drink containing alcohol: 2-4 times a month How many standard drinks containing alcohol do you have on a typical day: 3 or 4 How often do you have six or more drinks on one occasion: Never AUDIT-C Alcohol total score: 3 Non-prescribed substance use: marijuana (any form) Are you using contraception or practicing any form of control: No Exam Narrative: Exam Narrative: Const: Well-nourished, Well-developed, in mild distress Eyes: PERRL, no conjunctival injection, and symmetrical lids HENT: Atraumatic external nose and ears. Moist mucous membranes. Extremities: Strong dorsalis pedis pulse bilateral lower extremities, cap refills under 2 seconds bilaterally lower extremities MSK:Extremities w/o deformity, Normal Active ROM there is tenderness to the right lateral malleolus both anterior and posterior with some bruising noted. Skin: Warm, Dry. No rashes or lesions. Neuro: Normal Muscle tone, No focal neurological deficits. Psych: Awake, Alert, & Oriented x3. Appropriate mood and affect. Const: Vital Signs, click to edit/add: Vital Signs - 24 hr 06/15/23 19:13 Temperature 97.5 F L Pulse Rate [Pulse Oximeter] 73 Respiratory Rate 18 Blood Pressure [Le ft Upper Arm] 148/107 H Pulse Oximetry 98 Oxygen Delivery Me thod Room Air Course Vital Signs Vital signs: Initial Vital Signs Temperature 97.5 F L 06/15/23 19:13 Temperature Source Temporal Artery Scan 06/15/23 19:13 Pulse Rate 73 06/15/23 19:13 Respiratory Rate 18 06/15/23 19:13 Blood Pressure 148/107 H 06/15/23 19:13 Blood Pressure Mean 120 H 06/15/23 19:13 Blood Pressure Position Sitting 06/15/23 19:13 Pulse Oximetry 98 06/15/23 19:13 Oxygen Delivery Method Room Air 06/15/23 19:13 Vital Signs Temperature 97.5 F L 06/15/23 19:13 Pulse Rate 73 06/15/23 19:13 Respiratory Rate 18 06/15/23 19:13 Blood Pressure 148/107 H 06/15/23 19:13 Pulse Oximetry 98 06/15/23 19:13 Oxygen Delivery Method Room Air 06/15/23 19:13 Temperature 97.5 F L 06/15/23 19:13 Pulse Rate 73 06/15/23 19:13 Respiratory Rate 18 06/15/23 19:13 Blood Pressure 148/107 H 06/15/23 19:13 Pulse Oximetry 98 06/15/23 19:13 Oxygen Delivery Method Room Air 06/15/23 19:13 MDM - Extremity Injury (Lower) MDM Narrative Medical decision making narrative: Patient is a 38-year-old female presenting for right ankle pain has been going on for almost month. She had knee surgery 1 month ago. Denies any other injuries that she is aware of. She is concerned she could have a blood clot but that seems unlikely considering there is only swelling around the ankle. She has thinks her right foot is colder than the left but on my examination they feel about the same. She was given a dose of IM morphine. We did do an x-ray of the right ankle that shows no acute abnormalities. Cannot say for surgeon was causing her pain but again it seems unlikely to be a blood clot. She could have sprained the foot while she had the right lower extremity block in has not given it adequate time to heal. She was offered an ankle brace but states she has appointment with orthopedics tomorrow morning and will hold off on the brace right now. Patient will be discharged home and she is agreeable with this plan Discharge Plan Discharge Clinical Impression: Ankle pain, right Qualifiers: Chronicity: acute Qualified Code(s): M25.571 - Pain in right ankle and joints of right foot Patient Disposition: Home, Self-Care Condition: Stable Instructions: Arthralgia (ED) Additional Instructions: Follow-up with your orthopedics provider. Return for new worsening symptoms. Continue to take your home pain medication as directed Prescriptions: No Action cetirizine 10 mg tablet 10 mg PO DAILY PRN fluoxetine 20 mg capsule 60 mg PO DAILY tizanidine 4 mg capsule 4 mg PO BID PRN (Reason: muscle spasticity) Qty: 10 0RF fluticasone propionate [24 Hour Allergy Relief] 50 mcg/actuation spray,suspension 2 spray intranasal DAILY Rx Instructions: administer into each nostril tizanidine 4 mg capsule 4 mg PO Q6H PRN Rx Instructions: do not exceed 3 doses per 24 hrs ketorolac 10 mg tablet 10 mg PO Q6H 5 Days Qty: 20 0RF ondansetron 4 mg tablet,disintegrating 4 mg PO Q8H PRN (Reason: nausea) Qty: 20 2RF Follow Up/Referrals: Provider,Not a Local [Primary Care Provider] - Stand Alone [facility] Inst[facility]
== END 2023-06-15 20:47 | disposition home or self-care (01) ==
PROVIDERS: Emergency Provider Student in an Organized Health Care Education/Training Program
DX: M25.571 Pain in right ankle and joints of right foot (principal)
CPT/HCPCS: 73610; 96372; 99282; 99283; J2270

== ENCOUNTER 2023-06-19 17:41 | Emergency (ER) | payer OTHER, SELFPAY ==
[2023-06-19 17:57] VITALS: BP 123/87; PULSE 84; RESP 22; TEMP 36.8; O2SAT 99
--- NOTE | 2023-06-19 18:18 | CRLHL7_ITS ---
For Patients: As a result of the Century Cures Act, medical imaging exams and procedure reports are released immediately into your electronic medical record. You may view this report before your referring provider. If you have questions, please contact your health care provider. INDICATION: Leg pain and swelling. TECHNIQUE: Ultrasound venous duplex lower right extremity. Compression venous exam was performed using simmons-scale, color Doppler, and spectral Doppler analysis. COMPARISON: None. FINDINGS: Deep veins: Sonographic imaging demonstrates the right common femoral, deep femoral, superficial femoral, popliteal, posterior tibial and the contralateral left common femoral veins to be fully compressible with normal color Doppler blood flow. Superficial veins: Greater saphenous vein is fully compressible. No popliteal cyst. IMPRESSION: No DVT in the right lower extremity. Dictated by Danica Alonzo MD @ 06/19/2023 7:46:05 PM (Electronically Signed)
--- NOTE | 2023-06-19 18:21 | ED_ITS ---
HPI - General Adult General Chief complaint: Extremity Pain/Injury, Lower Stated complaint: R leg and back pain Time Seen by Provider: 06/19/23 18:09 History of Present Illness HPI narrative: This 38-year-old female comes in with pain in her low back radiating all the way down her right leg. She was just at a follow-up orthopedic appointment as she had a ACL repair done 1 month ago. She has been recovering from this but recently has developed pain in her low back radiating down this same right leg. The orthopedic clinician stated that she should have an ultrasound to rule out a blood clot. The patient decided to come here because of severe pain. She is taking Zanaflex but is not on any other prescription pain medicine. She is wearing a brace on her right knee as she is recovering from ACL reconstruction. She does not report any chest pain or shortness of breath. She does not have any leg swelling. She does have a history of low back pain with radiculopathy in the past and believes that this is what has flared up again. Related Data Home Medications Medication Instructions Recorded Confirmed cetirizine 10 mg tablet 10 mg PO DAILY PRN 12/30/22 06/16/23 fluoxetine 20 mg capsule 60 mg PO DAILY 12/30/22 06/16/23 fluticasone propionate 50 2 spray intranasal DAILY 05/15/23 06/16/23 mcg/actuation nasal spray,suspension (24 Hour Allergy Relief) tizanidine 2 mg tablet 2 mg PO 3XD 06/16/23 06/16/23 Previous Rx's Medication Instructions Recorded ondansetron 4 mg disintegrating 4 mg PO Q8H PRN nausea #20 tabs 05/19/23 tablet tizanidine 4 mg capsule 4 mg PO BID PRN muscle spasticity 06/06/23 #10 caps tramadol 50 mg tablet 50 mg PO Q8H PRN pain #5 tabs 06/16/23 hydrocodone 5 mg-acetaminophen 325 1 tab PO Q4-6H PRN pain #20 tabs 06/19/23 mg tablet ketorolac 10 mg tablet 10 mg PO Q8H 5 days #15 tabs 06/19/23 methylprednisolone 4 mg tablets in See Rx Instructions PO .COMPLEX 06/19/23 a dose pack (Medrol (Mateo)) #21 ea Allergies Allergy/AdvReac Type Severity Reaction Status Date / Time No Known Drug Allergies Allergy Verified 06/19/23 18:01 Review of Systems Status of ROS: Reports: 10 or more systems reviewed and unremarkable except as noted in History and below Narrative: Constitutional: No fevers, no weight gain or loss. Eyes: No discharge. No vision changes. HENT: No congestion, no sore throat, no ear pain. Cardiovascular: No chest pain, no palpitations. Respiratory: No shortness of breath, no wheezes, no cough. Gastrointestinal: No abdominal pain, no vomiting, no diarrhea. Genitourinary: No dysuria, no hematuria. Musculoskeletal: Right leg pain radiating from the low back. Recent ACL reconstruction 1 month ago. Skin: No rashes, no pruritis. Neurological: No dizziness, weakness, sensory change, speech change. Endo/Heme/Allergies: No bruising or bleeding. No polydipsia. Pysch: no suicidality, no anxiety, no insomnia. All other systems reviewed and are negative. 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Z98.890 - Other specified postprocedural states (ICD-10) ?Z87.42 - Personal history of other diseases of the female genital tract (ICD-10) Status post left oophorectomy (06/19/21) ?Z90.721 - Acquired absence of ovaries, unilateral (ICD-10) Family History Other Stroke Social History Smoking Status: Current every day smoker Do you use any of these nicotine containing products: Vaping Products Second hand tobacco smoke exposure: No How often do you have a drink containing alcohol: 2-4 times a month How many standard drinks containing alcohol do you have on a typical day: 3 or 4 How often do you have six or more drinks on one occasion: Never AUDIT-C Alcohol total score: 3 Non-prescribed substance use: marijuana (any form) Are you using contraception or practicing any form of control: No Exam Narrative: Exam Narrative: Constitutional: Well-developed, well-nourished, no acute distress. HEENT: Normocephalic, atraumatic. Neck: Normal range of motion. Nontender. Supple. Heart: Regular. No murmurs. Normal rate. Intact distal pulses. Lungs: Clear to auscultation. No chest discomfort. No wheezes, rhonchi, or rales. Abdomen: Normal bowel sounds. Nontender. No rebound tenderness. Genitalia: Deferred. Back: No midline tenderness. Diffuse low back pain right greater than left with pain radiating down the right leg to her foot. Extremities: ACL reconstruction done 1 month ago with normal signs of healing. No sign of infection or erythema. The patient's knee is in a brace. No significant swelling. Skin: Intact. No rash. Warm. No erythema or pallor. Neurologic: No altered sensation. No weakness. Alert and oriented. Psychiatric: No suicidality. No anxiety or depression. No insomnia. Nursing notes and vitals signs are reviewed. Const: Vital Signs, click to edit/add: Vital Signs - 24 hr 06/19/23 17:57 Temperature 98.2 F Pulse Rate [Pulse Oximeter] 84 Respiratory Rate 22 Blood Pressure [Ri ght Upper Arm] 123/87 Pulse Oximetry 99 Oxygen Delivery Me thod Room Air Course Vital Signs Vital signs: Initial Vital Signs Temperature 98.2 F 06/19/23 17:57 Temperature Source Temporal Artery Scan 06/19/23 17:57 Pulse Rate 84 06/19/23 17:57 Pulse Rhythm Regular 06/19/23 17:57 Pulse Strength 3+ Normal 06/19/23 17:57 Respiratory Rate 22 06/19/23 17:57 Blood Pressure 123/87 06/19/23 17:57 Blood Pressure Mean 99 06/19/23 17:57 Blood Pressure Position Sitting 06/19/23 17:57 Pulse Oximetry 99 06/19/23 17:57 Oxygen Delivery Method Room Air 06/19/23 17:57 Vital Signs Temperature 98.2 F 06/19/23 17:57 Pulse Rate 84 06/19/23 17:57 Respiratory Rate 22 06/19/23 17:57 Blood Pressure 123/87 06/19/23 17:57 Pulse Oximetry 99 06/19/23 17:57 Oxygen Delivery Method Room Air 06/19/23 17:57 Temperature 98.2 F 06/19/23 17:57 Pulse Rate 84 06/19/23 17:57 Respiratory Rate 22 06/19/23 17:57 Blood Pressure 123/87 06/19/23 17:57 Pulse Oximetry 99 06/19/23 17:57 Oxygen Delivery Method Room Air 06/19/23 17:57 Medical Decision Making [facility] Narrative Medical decision making narrative: This patient comes in with pain in her low back radiating down her whole right leg that is very typical for lumbar radiculopathy. She did have a surgery to her right knee about a month ago so an ultrasound of the right lower extremity is obtained and shows no evidence of deep venous thrombosis. The patient did receive an intramuscular injection of morphine. This brought sufficient relief to her. I did provide prescriptions for [place], Toradol, and Medrol Dosepak. She understands that we will not refill [place] out of the emergency department. She is interested in following up with a spine clinic here so information is provided for her to do that. Discharge Plan Discharge Clinical Impression: Lumbar radiculopathy Patient Disposition: Home w/ Parent or Adult Condition: Improved Additional Instructions: Take medication as prescribed. Follow up with Spine Clinic and call for appointment by dialing [phone]. Return if worsening. Prescriptions: New hydrocodone-acetaminophen 5-325 mg tablet 1 tab PO Q4-6H PRN (Reason: pain) Qty: 20 0RF ketorolac 10 mg tablet 10 mg PO Q8H 5 Days Qty: 15 0RF methylprednisolone [Medrol (Mateo)] 4 mg tablets,dose pack See Rx Instructions .ROUTE .COMPLEX Qty: 21 0RF Rx Instructions: orally per package directions No Action cetirizine 10 mg tablet 10 mg PO DAILY PRN fluoxetine 20 mg capsule 60 mg PO DAILY tizanidine 2 mg tablet 2 mg PO 3XD tramadol 50 mg tablet 50 mg PO Q8H PRN (Reason: pain) Qty: 5 0RF tizanidine 4 mg capsule 4 mg PO BID PRN (Reason: muscle spasticity) Qty: 10 0RF fluticasone propionate [24 Hour Allergy Relief] 50 mcg/actuation spray,suspension 2 spray intranasal DAILY Rx Instructions: administer into each nostril ondansetron 4 mg tablet,disintegrating 4 mg PO Q8H PRN (Reason: nausea) Qty: 20 2RF Follow Up/Referrals: Provider,Not a Local [Primary Care Provider] - Stand Alone Forms: MyHealth Info Instructions
[2023-06-19] MEDS: MORPHINE 10 MG/ML inj IM (18:33)
[2023-06-19 19:40] VITALS: BP 123/87; PULSE 84; RESP 22; TEMP 36.8
[2023-06-19] MEDS: KETOROLAC 10 MG TABLET PO (19:43)
== END 2023-06-19 19:40 | disposition home or self-care (01) ==
LOC: ED 19:28
PROVIDERS: Emergency Provider Emergency Medicine Emergency Medical Services
DX: M54.16 Radiculopathy, lumbar region (principal)
CPT/HCPCS: 93971; 96372; 99283; 99284; A9270; J2270

== ENCOUNTER 2023-07-25 08:09 | Outpatient (CLI) | payer OTHER, SELFPAY | END 2023-07-25 08:10 | disposition home or self-care (01) | LOC: NFLDREF 07-27 23:26 | PROVIDERS: Visit Provider Obstetrics & Gynecology | DX: N92.6 Irregular menstruation, unspecified (principal) | CPT/HCPCS: 83520 ==

== ENCOUNTER 2023-07-25 08:14 | Outpatient (CLI) | payer OTHER, SELFPAY ==
--- NOTE | 2023-07-25 08:15 | CRLHL7_ITS ---
For Patients: As a result of the Century Cures Act, medical imaging exams and procedure reports are released immediately into your electronic medical record. You may view this report before your referring provider. If you have questions, please contact your health care provider. INDICATION: Right ovarian cystic lesions. TECHNIQUE: Ultrasound pelvis transvaginal for better assessment or to better visualize the endometrium. Real-time sonographic images with spectral and color Doppler imaging of the ovaries were obtained. COMPARISON: June 01, 2023. FINDINGS: Uterus: 8 x 5 x 4 cm. Probable right posterior fundal uterine fibroid measuring 2 cm. Endometrium: Transvaginal imaging was performed to better evaluate the endometrium. Endometrial thickness measures 5 mm. No sign of endometrial mass or fluid. Right ovary 6 x 4 x 4 cm. Left ovary resected. No significant change in size and appearance of a simple right ovarian cyst measuring 5 x 4 cm. A separate complex cystic/solid lesion in the right ovary measures 4 x 3 cm. Normal arterial and venous blood flow is demonstrated in both ovaries. Cul-de-sac: No significant free fluid. IMPRESSION: Evolving hemorrhagic cyst in the right ovary is almost certainly benign. Separate stable 5 x 4 cm simple right ovarian cyst is also almost certainly benign. However, due to the relatively large size of the cyst, guidelines recommend an annual follow-up ultrasound to ensure improvement or stability. Dictated by Sascha Gerber MD @ 07/26/2023 3:01:57 PM (Electronically Signed)
== END 2023-07-25 08:15 | disposition home or self-care (01) ==
PROVIDERS: Visit Provider Obstetrics & Gynecology
DX: N83.201 Unspecified ovarian cyst, right side (principal)
CPT/HCPCS: 76830

== ENCOUNTER 2023-08-15 14:00 | Outpatient (RCR) | payer OTHER, SELFPAY | END 2023-12-13 23:59 | disposition home or self-care (01) | PROVIDERS: Visit Provider Family Medicine | DX: M54.41 Lumbago with sciatica, right side (principal); Z98.890 Other specified postprocedural states; M25.561 Pain in right knee; Z74.09 Other reduced mobility; R26.9 Unspecified abnormalities of gait and mobility; M62.81 Muscle weakness (generalized); R60.9 Edema, unspecified; R29.898 Other symptoms and signs involving the musculoskeletal system; Z51.89 Encounter for other specified aftercare | CPT/HCPCS: 97110; 97140; 97162 ==

== ENCOUNTER 2023-10-01 08:45 | Outpatient (CLI) | payer OTHER, SELFPAY ==
[2023-10-01 09:11] LABS: Strep A DNA Probe* NOT DETECTED (Not Detectd)
== END 2023-10-01 08:46 | disposition home or self-care (01) ==
LOC: NFLDUCREF 08:46
PROVIDERS: PCP Physician Assistant; Visit Provider Physician Assistant
DX: J02.9 Acute pharyngitis, unspecified (principal)
CPT/HCPCS: 87651

== ENCOUNTER 2023-11-13 13:54 | Outpatient (CLI) | payer OTHER, SELFPAY ==
--- NOTE | 2023-11-13 14:00 | US_ITS ---
Patient: SG MARTINEZ Facility:?[facility] Patient ID:?[id number] Site Patient ID:?[id number]. Site :?[id number] Study:?US-Pelvis PELVIS TA & TV-11/13/2023 2:41:53 PM Ordering Physician:?CORNELIUS FIGUEROA M.D. Final Report: INDICATION: Right ovarian cyst COMPARISON: 07/25/2023 TECHNIQUE: 2D simmons scale and color Doppler images were acquired of the pelvis using a transabdominal and transvaginal approach. FINDINGS: Sonographic images demonstrate a normal size and smooth outer contour of the uterus. Uterus measures 9.1 cm in length by 3.8 cm in AP diameter by 5.3 cm in transverse dimension. The myometrium has a normal uniform echotexture. The endometrial lining measures 13 mm in composite thickness. The right ovary measures 5.3 x 3.7 x 3.5 cm in size and the left ovary is not visualized. The right ovary demonstrates normal arterial and venous blood flow on color Doppler analysis. There are no suspicious fluid collections within the cul-de-sac. Right ovarian cyst is present measuring 2.2 x 2.7 x 3.1 cm. There is a daughter cyst present measuring 1.3 cm. Additional right ovarian cyst is present measuring 1.7 x 1.8 x 1 5 cm containing a thin internal septation with no internal color Doppler flow. Stable area of increased echogenicity within the right ovary measuring 9 x 10 x 6 millimeters, previously measuring 10 x 10 x 9 millimeters. IMPRESSION: Benign right ovarian cysts. No suspicious findings. Dictated by Sathish Lopez MD @ 11/14/2023 6:43:35 AM Signed by:?Sathish Lopez MD @11/14/2023 6:43:35 AM (Electronic Signature)
== END 2023-11-13 13:55 | disposition home or self-care (01) ==
LOC: US 13:55
PROVIDERS: Visit Provider Obstetrics & Gynecology
DX: N83.201 Unspecified ovarian cyst, right side (principal)
CPT/HCPCS: 76830; 76856

== ENCOUNTER 2023-11-29 11:00 | Outpatient (RCR) | payer OTHER, SELFPAY | END 2024-01-24 17:37 | disposition home or self-care (01) | PROVIDERS: Visit Provider Orthopaedic Surgery Sports Medicine | DX: S83.231A Complex tear of medial meniscus, current injury, right knee, initial encounter (principal); Z51.89 Encounter for other specified aftercare | CPT/HCPCS: 97016; 97110; 97112; 97116; 97140; 97161; J2250; J3010 ==

== ENCOUNTER 2023-12-05 13:09 | Outpatient (CLI) | payer OTHER, SELFPAY ==
--- OUTSIDE RECORDS SUMMARY | 2023-12-05 13:11 | XMS_ITS | Clinical Summary ---
Author Name Unknown Organization [facility] Address [place], [place] [address] Care Team Providers Care Plant Utility Person Name Role Phone Chris Magana MD Primary Care Provider + [phone] Allergies No known active allergies Medications Medication Sig Dispensed Refills Start Date End Date Status cetirizine (ZyrTEC) 10 mg tabletIndications:Env ironmental allergies Take 1 Tablet (10 mg) by mouth once daily. 90 Tablet 3 03/03/2022 Active fluticasone (50 mcg per actuation) nasal solution (FLONASE)Indications: Encounter for surveillance of contraceptive pills Inhale 2 Sprays to both nostrils once daily. 9.9 mL 5 04/28/2022 Active ondansetron (ZOFRAN ODT) 4 mg disintegrating tabletIndications:Lum bar disc herniation Place 1 Tablet (4 mg) on the tongue every 8 hours if needed for Nausea/Vomitin g. 10 Tablet 07/13/2023 Active docusate (COLACE) 100 mg capsuleIndications:Mariza mbar disc herniation Take 1 Capsule (100 mg) by mouth once daily if needed for Constipation. 10 Capsule 07/13/2023 Active methocarbamoL (ROBAXIN) 750 mg tabletIndications:Lum bar radiculopathy,S/P lumbar discectomy Take 1 Tablet (750 mg) by mouth every 6 hours if needed for Muscle Spasm. 20 Tablet 10/12/2023 Active FLUoxetine (PROZAC) 40 mg capsuleIndications:An xiety,Concentration deficit Take 1 Capsule (40 mg) by mouth once daily. 90 Capsule 1 10/24/2023 Active naproxen (NAPROSYN) 500 mg tabletIndications:Lum bareback rider pain Take 1 Tablet (500 mg) by mouth two times daily for 14 days. 28 Tablet 10/24/2023 11/07/2023 Active Problems Problem Noted Date Diagnosed Date Old complete ACL tear, left 04/17/2023 Overview: Orthopedics 11/2022 consistent with chronic bilateral patellar subluxations. Patient with a history of this since 2004, right greater than left. Based on this I am recommending the patient undergo formal physical therapy, specifically for strengthening of the vastus medialis oblique muscle. Patient will have this physical therapy completed in [place] Second opinion got MRI and found complete anterior cruciate ligament tear =- Mild preeclampsia delivered 10/14/2021 Anxiety Encounters Date Type Department Care Team Description 11/22/2023 3:00 PM CDT Office Visit [address] [address] Stefanie Vasquez AuD Hearing Problem (Hearing test) 11/22/2023 Travel 11/09/2023 7:30 AM CDT Nurse/Clinic Staff Only [address] [address] Testing (HST Return/Download) 11/08/2023 2:45 PM CDT Nurse/Clinic Staff Only [address] [address] Testing (HST Set-up) 11/08/2023 Procedure Only [address] [address] Antony Drake MD Results (Home Sleep Test) 11/08/2023 Travel 10/24/2023 2:15 PM TECHNOLOGY RISK INTERN Office Visit [facility] [address] [place] [address] Renetta Zazueta MD Physical (physical 38 years- wants referral for ADHD testing); Hearing Problem (hearing decreased in left ear more than right); Sleep Problem (thinks she has sleep apnea); Weight (wants to discuss weight loss medications-she's been on this medication before); (wants preg. test, home test was negative) 10/24/2023 Travel 10/12/2023 11:40 AM TECHNOLOGY RISK INTERN [place] [facility] [place] [address] [place] [address] Chris Magana MD Back Pain 10/12/2023 Travel from Last 3 Months Immunizations Name Administration Dates Next Due DT (Age < 7 years) 09/14/2004 DTP 04/03/1991,1985,1985 ,1985 Hepatitis B, Unspecified 01/05/1998,11/03/1997,0 09/08/1997 Influenza, IIV4 06/10/2020 MMR 04/03/1991 Meningococcal Vaccine (Menomune) 04/20/2004 Oral Polio Vaccine 04/03/1991,1985, 985,1985 Tdap 10/13/2015 Varicella Vaccine 03/28/1996 Family History Medical History Relation Name Comments Sleep apnea Father improved Dementia Maternal Grandmother Alcoholism Mother Coronary artery disease Mother Hypertension Mother Stroke Mother Liver cancer Paternal Grandfather Cancer Paternal Grandmother Obesity Sister 1 Sleep apnea Sister 1 Relation Name Status Comments Father Alive Maternal Grandfather Maternal Grandmother Mother Alive Paternal Grandfather Paternal Grandmother Sister 1 Alive Sister 2 Other Social History Tobacco Use Types Packs/Day Years Used Date Smoking Tobacco: Former Cigarettes 0.3 18 2 003 - 2020 Passive Smoke Exposure: Never Smokeless Tobacco: Never Tobacco Cessation:Counseling Given: Yes Alcohol Use Standard Drinks/Week Comments Yes 0 (1 standard drink = 0.6 oz pur e alcohol) occasionally PHQ-2 Answer Date Recorded PHQ-2 TOTAL SCORE 1 10/24/2023 Social Connections Answer Date Recorded Frequency of Communication with Friends and Fami ly 0 12/12/2022 Financial Resource Strain Answer Date R ecorded Difficulty of Paying Living Expenses 3 12/12/2022 Difficulty of Paying Living Expenses Not on file 12/12/2022 Food Insecurity Answer Date Recorded Worried About Running Out of Food in the Last Ye ar 1 12/12/2022 Transportation Needs Answer Date Record ed Lack of Transportation (Medical) 1 12/12/2022 Housing Stability Answer Date Recorded Unable to Pay for Housing in the Last Year 1 12/12/2022 Sex and Gender Information Value Date Recorded Sex Assigned at Female 10/13/2021 10:40 AM TECHNOLOGY RISK INTERN Gender Identity Female 10/13/2021 10:40 AM TECHNOLOGY RISK INTERN Sexual Orientation Not on file Obstetrics History Last Filed Vital Signs Vital Sign Reading Time Taken Comments Blood Pressure 117/83 10/24/2023 2:15 PM TECHNOLOGY RISK INTERN Pulse 75 10/24/2023 2:15 PM TECHNOLOGY RISK INTERN Temperature 36.8 ??C (98.3 ??F) 07/13/2023 7:27 AM CS T Respiratory Rate 16 07/13/2023 7:27 AM TECHNOLOGY RISK INTERN Oxygen Saturation 97% 10/24/2023 2:15 PM TECHNOLOGY RISK INTERN Inhaled Oxygen Concentration - - Weight 95.3 kg (210 lb) 10/24/2023 2:15 PM TECHNOLOGY RISK INTERN Height 180.3 cm (5' 11) 10/24/2023 2:15 PM TECHNOLOGY RISK INTERN Body Mass Index 29.29 10/24/2023 2:15 PM TECHNOLOGY RISK INTERN Plan of Treatment Upcoming Encounters Date Type Department Care Team (Late st Contact Info) Description 01/17/2024 1:00 PM CDT Office Visit [facility] [address] [place] [address] Mic Llamas MD [address] [place] [address] Health Maintenance Due Date Last Done Comments HIV for age 15-65 2000 Hepatitis C screening for age 18-79 2003 COVID-19 vaccine series ( season) 2023 12/07/2020 Pap test for age 21-65 2024 9, 2019, 12/03/2015 (Completed outside of [facility]) Influenza for age 9-49 04/28/2024 06/10/2020 BMI (ht and wt on same day) for age 18+ 10/24/2024 10/24/2023, 10/12/2023, 07/10/2023, Additional history exists Depression screening for age 12+ 10/24/2024 10/24/2023, 12/14/2022, 12/12/2022, Additional history exists Tetanus booster 10/13/2025 10/13/2015 Tdap Completed 10/13/2015 Pneumococcal series for age 6-64 Aged Out No longer eligible based on patient's age to complete this topic Procedures Procedure Name Priority Date/Time Associated Diagnosis Comments HOME SLEEP STUDY UNATTENDED BY TECH Routine 11/08/2023 11:59 PM CDT Snoring HEMOGLOBIN A1C SCREENING Routine 10/24/2023 3:21 PM TECHNOLOGY RISK INTERN Screening for diabetes mellitus LIPID PANEL Routine 10/24/2023 3:21 PM TECHNOLOGY RISK INTERN Screening cholesterol level URINE Routine 10/24/2023 3:06 PM TECHNOLOGY RISK INTERN Late menses CLINICIAN ONCOLOGY THIN PREP PAP SCREEN IMAGED Routine 2019 4:43 PM CDT Pap smear for cervical cancer screening from Last 3 Months or Most Recently Relevant to Health Maintenance Results * HOME SLEEP STUDY UNATTENDED BY TECH (11/08/2023 11:59 PM CDT) Narrative Antony Drake MD - 11/08/2023 11:59 PM CDT Antony Drake MD ? 11/16/2023 ??4:10 PM Home Sleep Test Name: ??Rosanne ??Irineo Location: ??[facility] Study notes: This is a single night home sleep apnea test. The study is performed in the context of a clinical suspicion for sleep apnea. Rosanne ??Irineo ( 1985) is studied using a T3 Device using nasal pressure transducer, thoracoabdominal respiratory impedance plethysmography belts, pulse oximetry, snore microphone and actigraphy for body position. ??The study is scored by a RPSGT and interpreted by a Diplomate of the [place] Board of [employer]. ??An [id number]-[id number] review of the data has been performed by the interpreting physician. Scored following the most current version of the AASM Manual for the Scoring of Sleep and Associated Events. ?? Respiratory Event Index (MIRANDA) ??Oxygen Desaturation Index (ANGELI) REI4% ??2.7 ??ODI4%: ??3.1 Supine MIRANDA: 7.1 ??ODI3%: ??7.3 Lateral MIRANDA: 0.6 ??Mitchel Saturation 86 % ?? Time Below 88% 0.2 ??minutes ?? Weight: Wt Readings from Last 1 Encounters: 10/24/23 95.3 kg (210 lb) Other data: Recording Duration: 449.9 minutes Time in Bed: ??433 minutes Estimated sleep efficiency [%]: 98 % Oximeter Quality: 99.7 % Flow Quality: 100.0 % RIP Quality: 100.0 % Supine time: 135.6 minutes Average SpO2: 95.2 % Pulse Average: 56.1 bpm Additional Comments: None IMPRESSION: Excessive Daytime Sleepiness (780.54, G47.10) - No Evidence of Obstructive Sleep Apnea RECOMMENDATIONS: - This patient had a negative home sleep study. ??She had many events on her back, but overall was under 5 for her MIRANDA. - A formal polysomnogram should be considered given a high false negative rate to home sleep testing. - However, if there is low clinical suspicion for obstructive sleep apnea, a negative home sleep test can be diagnostic. - Follow-up with a provider to discuss results is recommended. - Patients should be advised to avoid critical tasks, such as driving, whenever drowsy. - Patients should try to achieve at least 7-8 hours of sleep on a consistent basis. - The MIRANDA is a surrogate for AHI. ??For reimbursement and/or prior authorization purposes, it would be appropriate to list the MIRANDA as an AHI when the latter is accepted, but not the former. Antony Drake M.D. Diplomate, Board of Sleep Medicine Recording Information Recording Date: 11/08/2023 ??Analysis Start Time: 11:06 PM Recording Tags: ?? Analysis Stop Time: 6:18 AM Device Type: T3S ??Analysis Duration (TRT): 7h 12m ?? Est. Total Sleep Time: 7h 9m Position and Analysis Time Duration Percentage Supine (in TST): 135.6 m 31.6 % Non-Supine (in TST): 293.6 m 68.4 % Upright (in TRT): 3.8 m 0.9 % Movement (in TST): 10.5 m 2.4 % Invalid Data (Excluded): 0 m 0 % Respiratory Indices Index ?? Total ??Supine ??Non-supine Count Apneas + Hypopneas (AH): 2.7 /h 7.1 /h 0.6 /h 19 Apneas: 0.7 /h 1.8 /h 0.2 /h 5 Obstructive (OA): 0.6 /h 1.8 /h 0 /h 4 Mixed (MA): 0 /h 0 /h 0 /h 0 Central (CA): 0.1 /h 0 /h 0.2 /h 1 Hypopneas: ??2 /h 5.3 /h 0.4 /h 14 Respiration Rate (per m): 15.6 /m 15.4 /m 15.7 /m ?? Percentage of Sleep Duration Snore: 16.2 % 11.7 % 18.2 % 69.4 m Flow Limitation: 0 % 0 % 0 % 0 m Average Snore Volume 63.8 dB Percent of time greater than 80dB: Percent of 0.8 % Oxygen Saturation (SpO2) Total Supine ?Non-supine Oxygen Desaturation Index (ANGELI): 7.3 /h ??14.6 /h 3.9 /h Average SpO2: 95.2 % ??94.8 % 95.4 % Minimum SpO2: 86 % ??86 % 91 % SpO2 Duration < 90% 0.1 % (0.4m) 0.3 % 0 % SpO2 Duration ? 88% 0.1 % (0.2m) 0.2 % 0 % Pulse in TST ?? Quality ?? Average: 56.1 bpm Oximeter: 99.7 % Maximum: 92 bpm Nasal Cannula: 100 % Minimum: 47 bpm Abdomen RIP: 100 % Duration < 40 bpm: 0 m Thorax RIP: 100 % Duration > 100 bpm: 0 m ? Renetta Zazueta MD [facility]EP [facility] * HEMOGLOBIN A1C SCREENING (10/24/2023 3:21 PM TECHNOLOGY RISK INTERN) HEMOGLOBIN A1C SCREENING 5.3 <=6.4 % 10/24/2023 9:29 PM TECHNOLOGY RISK INTERN [facility] Blood BLOOD SPECIMEN / Unknown Venipuncture / Unknown 10/24/2023 3:21 PM TECHNOLOGY RISK INTERN 10/24/2023 3:24 PM TECHNOLOGY RISK INTERN Narrative [facility] - 10/24/2023 9:29 PM TECHNOLOGY RISK INTERN ? (<5.7%) ?Normal ? (5.7% to 6.4%) ? Indicates prediabetes ? (>=6.5%) ? Confirms diabetes Falsely low levels may be seen with: Recent Transfusion, Recent Significant Blood Loss, Hemolytic Diseases, or Falsely elevated levels may be seen with: Untreated Anemias, Splenectomy Renetta Zazueta MD CHEMISTRY [facility] [address] [place] [address], * LIPID PANEL (10/24/2023 3:21 PM TECHNOLOGY RISK INTERN) Pathologist [facility] CHOLESTEROL,TOTAL 177 100 - 199 mg/dL 10/24/2023 9:51 PM [facility] Comment: Cholesterol, Total Reference Ranges Desirable <200 mg/dL Borderline 200-239 mg/dL High >=240 mg/dL TRIGLYCERIDES 60 <150 mg/dL 10/24/2023 9:51 PM [facility] HDL CHOLESTEROL 63 >40 mg/dL 9:51 PM [facility] NON-HDL CHOLESTEROL 114 <145 mg/dl 10/24/2023 9:51 PM [facility] CHOL/HDL RATIO 2.81 <4.50 10/24/2023 9:51 PM [facility] LDL CHOLESTEROL 102 <=130 mg/dL 10/24/2023 9:51 PM [facility] VLDL CHOLESTEROL 12 <=30 mg/dL 10/24/2023 9:51 PM [facility] PROVIDER ORDERED STATUS RANDOM 10/24/2023 9:51 PM [facility] Blood BLOOD SPECIMEN / Unknown Venipuncture / Unknown 10/24/2023 3:21 PM TECHNOLOGY RISK INTERN 10/24/2023 3:24 PM TECHNOLOGY RISK INTERN Renetta Zazueta MD CHEMISTRY [facility] [address] [place] [address], * URINE (10/24/2023 3:06 PM TECHNOLOGY RISK INTERN) [facility] ,URIN E Negative Negative 10/24/2023 3:11 PM TECHNOLOGY RISK INTERN [facility] Urine URINE SPECIMEN / Unknown Non-Blood / Unknown 10/24/2023 3:06 PM TECHNOLOGY RISK INTERN 10/24/2023 3:06 PM TECHNOLOGY RISK INTERN Renetta Zazueta MD URINE Performing Organization Address City/[facility] Co de Phone Number [facility] [address] [place] [address], * CLINICIAN ONCOLOGY THIN PREP PAP SCREEN IMAGED (2019 4:43 PM CDT) [facility] Case Report Gynecologic Cytology Report ? Case: [id number] ? Authorizing Provider: ??Cassandra Teresa MD ? Collected: ? 2019 1643 ? Ordering Location: ? [facility] ?? Received: ?2019 1643 ? Clinic ? First Screen: ?Rohith Soliman ? Specimen: ?CLINICIAN ONCOLOGY ThinPrep Vial Screening, Cervical ? 05/06/2019 2:11 PM CDT [facility] INTERPRETATION/ RESULT NEGATIVE FOR INTRAEPITHELIAL LESION OR MALIGNANCY (NIL) (none) 05/06/2019 2:11 PM CDT [facility] IMEN ADEQUACY Satisfactory for evaluation Endocervical component present 05/06/2019 2:11 PM CDT [facility] HPV REQUEST HPV and PAP 05/06/2019 2:11 PM CDT [facility] Date of LMP 03/28/19 05/06/2019 2:11 PM CDT [facility] Last Pap Date 12/03/15 05/06/2019 2:11 PM CDT [facility] Last Pap Result NIL 9 2:11 PM CDT [facility] Abnormal Pap or [place] Bx in last 5 years No 05/06/2019 2:11 PM CDT [facility] Menstrual Status Regular Periods 05/06/2019 2:11 PM CDT [facility] [place] Bx Done Today No 05/06/2019 2:11 PM CDT [facility] Additional Information None given 05/06/2019 2:11 PM CDT [facility] Automated Review Successful 05/06/2019 2:11 PM CDT [facility] Comment:Specimen processed s uccessfully by automated buckle sorter device, ThinPrep Imaging System, [employer] ANCILLARY TESTING CLINICIAN ONCOLOGY HPV Ordered, Please see separate report 05/06/2019 2:11 PM CDT [facility] Note The pap test is a screening technique, not a diagnostic procedure. ??It is used primarily to screen for squamous cancers and precursor lesions. ??Published studies have shown that it is subject to both false negative and false positive results. ??The pap test should not be used as the sole means to diagnose or exclude pre-malignant and malignant lesions. Cytology is screened and interpreted at [facility] - [address], [place] [address] and [facility] - [address]; [place] [address] and [facility] - [address]; [place] [address] and [facility] [address]; [place] [address] 05/06/2019 2:11 PM CDT [facility] Other (Cervical) Non-Blood / Unknown 2019 4:43 PM CDT 2019 4:43 PM CDT Cassandra Teresa MD PATHOLOGY/CYTOLOGY [facility] [address] [place] [address], from Last 3 Months or Most Recently Relevant to Health Maintenance Advance Directives * Full Code (Latest Code Status on File) Date Activated Date Inactivated Comments 07/12/2023 5:26 PM 07/13/2023 2:07 PM Question Answer Comments Code Status Discussion: Unable to Assess Preferences, Provider to review later Care Teams Plant Utility Person Relationship Specialty [place] [address] [place] [address] PCP - General Family Practice 07/07/23
--- OUTSIDE RECORDS SUMMARY | 2023-12-05 13:11 | XMS_ITS | Continuity of Care Document ---
Author Name Unknown Organization [facility] Address [address] [place] [address] Phone Care Team Providers Care Mold Puller Name Role Phone Velvet Chatterjee MD Unavailable Unavailable Allergies, Adverse Reactions, Alerts Substance Reaction Status Criticality No Known Allergies Active No Inform ation Medications Medication Instructions Dosage Effective Dates (start - stop) Status Comments prednisone 5 mg tablet take 4 tabs by oral route once daily for 3 days. Then take 3 tabs by oral route once daily for 3 days. Then take 2 tabs once daily for 3 days. Then take 1 tab once daily for 3 days. then stop medicine. - Active GABAPENTIN (unknown strength) Not Available - Active FLONASE SENSIMIST (unknown strength) Not Available - Active FLUOXETINE HCL (unknown strength) Not Available - Active Procedures Procedure Date OFFICE/OUTPATIENT VISIT EST Phone POSTOP FOLLOW-UP VISIT Telephone 2023 Postop Followup Visit Lami/Discectomy, Lumbar HNP - [place] 2022 Lami/Discectomy, Lumbar HNP Office/Outpatient Visit,[facility] 2022 Advance Directives Directive Yes / No Effective Date File Name No Information Encounters Encounter Description Practice Location Reason(s) For Visit Diagnoses Date Provider Providers Copied on Encounter [facility], [address], [facility] [place], [id number], [place] tel:[phone] [facility] No Information Shena Verdin. [facility], [address], [place], [id number] , [place]. tel: [phone] OFFICE/OUTPAT IENT VISIT EST Phone [facility], [address], [place], [id number], [place] tel:[phone] [facility] Encounter for follow-up examination after completed treatment for conditions other than malignant neoplasmLow back pain 0 4 Mehbod Amir. [facility], [address] [place] [address] [address], [place], [id number] , [place]. tel: [phone] Referring Provider: Nisha Wood, [place] [address], [place], [address]. tel:[phone] [facility], [address], [place], [id number], [place] tel:[phone] [facility] No Information 4 Mehbod Amir. [facility], [address] [place] [address] [address], [place], [id number] , [place]. tel: [phone] [facility], [address], [place], [id number], [place] tel:[phone] [facility] No Information 4 Mehbod Amir. [facility], [address], [place], [id number] , [place]. tel: [phone] Referring Provider: Nisha Wood [address], [place], [address]. tel:[phone] [facility], [address], [place], [id number], [place] tel:[phone] [facility] Encounter for other specified surgical aftercare 3 Mehbod Amir. [facility] [place], [address] [place] [address] [address], [place], [id number] , [place]. tel:[phone] Referring Provider: Nisha Wood [address], [place], [address]. tel:[phone] [facility], [address], [place], [id number], [place] tel:[phone] [facility] No Information 3 Darryl Ibanez. [address] [place] [address], [place], [id number] , [place]. tel:[phone] Referring Provider: Nisha Wood [place], [place], [address]. tel:[phone] [facility], [address], [place], [id number], [place] tel:[phone] [facility] No Information 3 Mehbod Amir. [facility] [place] [facility], [address] [place] [address] [address], [place], [place], [id number] , [place]. tel:[phone] Referring Provider: Nisha Wood [address], [place], [address]. tel:[phone] Office/Outpat ient Visit,New, [place] [facility], [address], [place], [id number], [place] tel:[phone] [facility] Other intervertebral disc displacement, lumbar regionRadiculop athy, lumbar region 3 Mehbod Amir. [facility], [address] [place] [address] [address], [place], [place], [id number] , [place]. tel:[phone] Referring Provider: Nisha Wood [address], [place], [address]. tel:[phone] Family History Family Member Type Diagnosis Age At Onset No Information Payers Payer name Insurance type Covered democrat ID Elioiona mayelaankur(s) [facility] [id number] Social History Type Description Quantity Date Captured Comments Sex Female Smoking Status No Information Chief Complaint And Reason For Visit No Information Reason For Referral Reason For Referral No Information History Of Present Illness Encounter Date Complaint History Of Prese nt Illness No Information Functional Status Date Functional Assessmen t No Information Instructions Date Instruction Additional Infor mation No Information Assessments Type Assessment Date No Information Patient Care Teams Name Effective Dates (start - stop) Status Members No Information
== END 2023-12-05 13:10 | disposition home or self-care (01) ==
LOC: NFLDREF 13:10
PROVIDERS: Visit Provider Physician Assistant
DX: N93.8 Other specified abnormal uterine and vaginal bleeding (principal); Z13.29 Encounter for screening for other suspected endocrine disorder
CPT/HCPCS: 84443

== ENCOUNTER 2023-12-17 18:41 | Emergency (ER) | payer OTHER, SELFPAY ==
[2023-12-17] VITALS (16 sets, daily range): BP systolic 147–172; BP diastolic 93–105; PULSE 55–90; RESP 18; TEMP 36.3; O2SAT 94–100; BMI 29.0
--- NOTE | 2023-12-17 19:21 | US_ITS ---
Patient: SG MARTINEZ Facility:?[facility] Patient ID:?[id number] Site Patient ID:?[id number]. Site :?1985 Study:?US-Pelvis PELVIS TV-12/17/2023 8:43:52 PM Ordering Physician:?ADELA SCHMITT M.D. Final Report: INDICATION: Pelvic pain, cyst rupture vs ovarian torsion. History of left oophorectomy 2 years ago. PELVIC ULTRASOUND Technique: Multiple transvaginal sonographic images of the pelvis were performed. Comparison: 11/13/2023 ultrasound. Findings: The uterus is normal in size and contour, measuring 9.9 x 4.5 x 5.6 cm. No uterine masses are identified. The endometrium measures 1.4 mm in thickness and appears homogeneous. The previously seen right ovarian cysts have resolved or significantly decreased in size. A couple of follicles remain present within the right ovary. A subcentimeter echogenic focus is again seen within the right ovary, of doubtful clinical significance. Spectral and color Doppler blood flow is demonstrated within the right ovary. No left ovary is visualized, consistent with given history. No adnexal masses are evident. No significant free pelvic fluid is identified. IMPRESSION: 1. No evidence of right ovarian torsion or other acute abnormality. 2. Nonvisualization of the left ovary consistent with the history of prior left oophorectomy. 3. Unremarkable uterus. IAIN NIXON MD [employer] Dictated by Joe Nixon MD @ 12/17/2023 9:22:08 PM Dictated by: Joe Nixon MD @ 12/17/2023 21:22:37 Signed by:?Joe Nixon MD @12/17/2023 9:22:37 PM (Electronic Signature)
--- NOTE | 2023-12-17 19:25 | ED_ITS ---
HPI - Abdominal Pain General Chief Complaint: Abdominal Pain Stated Complaint: Ruptured ovarian cyst Time Seen by Provider: 12/17/23 19:32 History of Present Illness HPI narrative: This 38-year-old female comes in reporting severe right lower quadrant abdominal pain. She states that she knows that she has a large cyst on the right ovary and there is a scheduled to have this removed surgically. She was told that this cyst could twist the ovary and cause torsion. She is concerned that this may be happening. She also reports dysfunctional uterine bleeding with menses occurring over the past 6 weeks for most of the time. She had a and had noted at that time surgically that there was cyst on the left ovary that was complicated. That left ovary was removed at that time. Related Data Home Medications Medication Instructions Recorded Confirmed fluoxetine 20 mg capsule 60 mg PO DAILY 12/30/22 12/17/23 fluticasone propionate 50 2 spray intranasal DAILY 05/15/23 12/17/23 mcg/actuation nasal spray,suspension (24 Hour Allergy Relief) cetirizine 5 mg tablet 5 mg PO QDAY PRN 12/05/23 12/17/23 Allergies Allergy/AdvReac Type Severity Reaction Status Date / Time No Known Drug Allergies Allergy Verified 12/17/23 18:51 Review of Systems Status of ROS Reports: 10 or more systems reviewed and unremarkable except as noted in History and below Narrative Constitutional: No fevers, no weight gain or loss. Eyes: No discharge. No vision changes. HENT: No congestion, no sore throat, no ear pain. Cardiovascular: No chest pain, no palpitations. Respiratory: No shortness of breath, no wheezes, no cough. Gastrointestinal: No vomiting, no diarrhea. Right lower quadrant abdominal pain. Genitourinary: No dysuria, no hematuria. Musculoskeletal: Normal range of motion. Skin: No rashes, no pruritis. Neurological: No dizziness, weakness, sensory change, speech change. Endo/Heme/Allergies: No bruising or bleeding. No polydipsia. Pysch: no suicidality, no anxiety, no insomnia. All other systems reviewed and are negative. [facility] Medical History Anxiety ?F41.9 - Anxiety disorder, unspecified (ICD-10) Transfusion of blood during current hospitalization Severe pre-eclampsia affecting childbirth ?O14.14 - Severe pre-eclampsia complicating childbirth (ICD-10) hemorrhage ?O72.1 - Other immediate hemorrhage (ICD-10) Generalized anxiety disorder ?F41.1 - Generalized anxiety disorder (ICD-10) Dermoid cyst of both ovaries ?D27.0 - Benign neoplasm of right ovary (ICD-10) ?D27.1 - Benign neoplasm of left ovary (ICD-10) Anemia due to acute blood loss ?D62 - Acute posthemorrhagic anemia (ICD-10) Depression ?F32.A - Depression, unspecified (ICD-10) Hypertension ?I10 - Essential (primary) hypertension (ICD-10) Surgical History History of discectomy (~06/2023) ?Z98.890 - Other specified postprocedural states (ICD-10) History of arthroscopy of right knee (05/17/23) ?Z98.890 - Other specified postprocedural states (ICD-10) Previous section ?Z98.891 - History of uterine scar from previous surgery (ICD-10) Status post primary low transverse section (06/19/21) ?Z98.891 - History of uterine scar from previous surgery (ICD-10) Status post ovarian cystectomy (06/19/21) ?Z98.890 - Other specified postprocedural states (ICD-10) ?Z87.42 - Personal history of other diseases of the female genital tract (ICD-10) Status post left oophorectomy (06/19/21) ?Z90.721 - Acquired absence of ovaries, unilateral (ICD-10) Family History Other Stroke 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 . Former cigarette smoker, quit 2020. Recently started vaping. Smoking Status: Current every day smoker Do you use any of these nicotine containing products: E-Cigarettes and Vaping Products Second hand tobacco smoke exposure: No How often do you have a drink containing alcohol: 2-4 times a month How many standard drinks containing alcohol do you have on a typical day: 5 or 6 How often do you have six or more drinks on one occasion: Never AUDIT-C Alcohol total score: 4 Non-prescribed substance use: marijuana (any form) Are you using contraception or practicing any form of control: No Exam Narrative: Exam Narrative: Constitutional: Well-developed, well-nourished, no acute distress. HEENT: Normocephalic, atraumatic. Neck: Normal range of motion. Nontender. Supple. Heart: Regular. No murmurs. Normal rate. Intact distal pulses. Lungs: Clear to auscultation. No chest discomfort. No wheezes, rhonchi, or rales. Abdomen: Decreased bowel sounds. Tenderness in the right lower quadrant. Mild rebound tenderness. Genitalia: Deferred. Back: No midline tenderness. Normal range of motion. Extremities: Normal range of motion. No injury. Skin: Intact. No rash. Warm. No erythema or pallor. Neurologic: No altered sensation. No weakness. Alert and oriented. Psychiatric: No suicidality. No anxiety or depression. No insomnia. Nursing notes and vitals signs are reviewed. Const: Vital Signs, click to edit/add: Vital Signs - 24 hr 12/17/23 18:45 12/17/23 19:40 12/17/23 19:45 Temperature 97.4 F L Pulse Rate 73 68 Pulse Rate [Pulse Oximeter] 90 Respiratory Rate 18 18 Blood Pressure Blood Pressure [Ri ght Upper Arm] 157/93 H Pulse Oximetry 100 97 97 Oxygen Delivery Me thod Room Air Room Air 12/17/23 20:00 12/17/23 20:01 12/17/23 20:59 Temperature Pulse Rate 74 77 64 Pulse Rate [Pulse Oximeter] Respiratory Rate Blood Pressure 150/100 H Blood Pressure [Ri ght Upper Arm] Pulse Oximetry 96 96 97 Oxygen Delivery Me thod 12/17/23 21:00 12/17/23 21:01 12/17/23 21:02 Temperature Pulse Rate 57 L 68 63 Pulse Rate [Pulse Oximeter] Respiratory Rate Blood Pressure 163/99 H 147/102 H Blood Pressure [Ri ght Upper Arm] Pulse Oximetry 96 95 96 Oxygen Delivery Me thod 12/17/23 21:15 12/17/23 21:39 12/17/23 21:40 Temperature Pulse Rate 62 67 65 Pulse Rate [Pulse Oximeter] Respiratory Rate Blood Pressure 172/105 H Blood Pressure [Ri ght Upper Arm] Pulse Oximetry 96 94 95 Oxygen Delivery Me thod 12/17/23 21:45 12/17/23 22:00 12/17/23 22:02 Temperature Pulse Rate 67 55 L 61 Pulse Rate [Pulse Oximeter] Respiratory Rate Blood Pressure 155/105 H Blood Pressure [Ri ght Upper Arm] Pulse Oximetry 96 97 95 Oxygen Delivery Me thod 12/17/23 22:15 Temperature Pulse Rate 58 L Pulse Rate [Pulse Oximeter] Respiratory Rate Blood Pressure Blood Pressure [Ri ght Upper Arm] Pulse Oximetry 97 Oxygen Delivery Me thod Course Vital Signs Vital signs: Initial Vital Signs Temperature 97.4 F L 12/17/23 18:45 Temperature Source Temporal Artery Scan 12/17/23 18:45 Pulse Rate 90 12/17/23 18:45 Respiratory Rate 18 12/17/23 18:45 Blood Pressure 157/93 H 12/17/23 18:45 Blood Pressure Mean 114 H 12/17/23 18:45 Blood Pressure Position Sitting 12/17/23 18:45 Pulse Oximetry 100 12/17/23 18:45 Oxygen Delivery Method Room Air 12/17/23 18:45 Vital Signs Temperature 97.4 F L 12/17/23 18:45 Pulse Rate 90 12/17/23 18:45 Respiratory Rate 18 12/17/23 18:45 Blood Pressure 157/93 H 12/17/23 18:45 Pulse Oximetry 100 12/17/23 18:45 Oxygen Delivery Method Room Air 12/17/23 18:45 Temperature 97.4 F L 12/17/23 18:45 Pulse Rate 58 L 12/17/23 22:15 Respiratory Rate 18 12/17/23 19:40 Blood Pressure 155/105 H 12/17/23 22:02 Pulse Oximetry 97 12/17/23 22:15 Oxygen Delivery Method Room Air 12/17/23 19:40 Medications Administered Medications: Generic Name Dose Route Start Last Admin Trade Name Freq PRN Reason Stop Dose Admin Ondansetron HCl 4 mg 12/17/23 20:54 12/17/23 20:55 Ondansetron 2 Mg/Ml Inj IVP 12/17/23 20:55 4 mg ONCE ONE Administration Ondansetron HCl 4 mg 12/17/23 22:04 04/21/24 22:11 Ondansetron 2 Mg/Ml Inj IVP 12/17/23 22:05 4 mg ONCE ONE Administration Discontinued Medications Generic Name Dose Route Start Last Admin Trade Name Paige PRN Reason Stop Dose Admin Morphine Sulfate 10 mg 12/17/23 19:25 12/17/23 19:31 Morphine 10 Mg/Ml Inj IM 12/17/23 19:26 10 mg ONCE ONE Administration MDM - Abdominal Pain MDM Narrative Medical decision making narrative: This patient has a history of ovarian cysts and only has 1 ovary on the right side currently. She is scheduled for surgery because of cyst on the right ovary this coming Monday, 3 days from now. She comes in because she is concerned with the increased pain that there may be a torsion of this ovary. She did receive an intramuscular injection of morphine 10 mg in this brought good relief to her pain. She also received a couple doses of Zofran intravenously. Ultrasound did not show any significant abnormalities. There is a 3 cm right ovarian cyst and no obvious collection of fluid in the cul-de-sac. A CT scan with IV contrast was then completed and also shows no acute abdominal abnormality. The patient may have deflated the cyst as her understanding was that it was greater than 5 cm cyst previously. She may have had some drainage of this fluid into her abdomen causing the pain. She is reassured with normal vital signs, normal labs, and normal imaging studies. She is okay to be discharged home. I did provide prescriptions from the [facility] for some tablets of [place] and Zofran. Lab Data Labs: Lab Results 12/17/23 Range/Units 20:54 WBC 6.80 (4.50-11.00) K/uL RBC 4.22 (4.00-5.20) m/uL Hgb 12.8 (12.0-16.0) gm/dL Hct 37.8 (33.0-51.0) % MCV 90 (80-100) fL MCH 30 (26-34) pg MCHC 34 (32-36) gm/dL RDW Coeff of Destiny 13.0 (11.5-15.5) % Plt Count 259 (140-440) K/uL Neut % (Auto) 54.5 (42.0-72.0) % Lymph % (Auto) 32.5 (20-44) % [place] % (Auto) 8.1 (0.0-11.0) % Eos % (Auto) 3.5 (0.0-7.0) % Baso % (Auto) 0.4 (0.0-3.0) % Neut # (Auto) 3.70 (1.7-7.0) K/uL Lymph # (Auto) 2.21 (0.90-2.90) K/uL [place] # (Auto) 0.60 (0.00-0.90) K/UL Eos # (Auto) 0.24 (0.00-0.50) K/uL Baso # (Auto) 0.03 (0.00-0.30) K/uL Abs Immat Gran (auto) 0.07 (0.00-0.30) K/uL Imm/Tot Granulo (auto) 1.0 % Sodium 139 (135-149) mmol/L Potassium 3.8 (3.6-5.1) mmol/L Chloride 112 (96-114) mmol/L Carbon Dioxide 26 (20-32) mmol/L Anion Gap 1 L (7-15) mEq/L BUN 15 (5-24) mg/dL Creatinine 0.7 (0.5-1.5) mg/dL Estimated Creat Clear 121.79 Estimated GFR 113 ml/min Glucose 81 (60-115) mg/dL Calcium 8.2 L (8.4-10.6) mg/dL Imaging Data US - abdomen: Radiologist's impression: 1. No evidence of right ovarian torsion or other acute abnormality. 2. Nonvisualization of the left ovary consistent with the history of prior left oophorectomy. 3. Unremarkable uterus. CT scan - abdomen: Radiologist's impression: No acute abdominal or pelvic abnormality. Discharge Plan Discharge Clinical Impression: Abdominal pain Patient Disposition: Home, Self-Care Condition: Improved Additional Instructions: Take medication as prescribed and needed. Follow up with MD return if worsening. Prescriptions: No Action fluoxetine 20 mg capsule 60 mg PO DAILY cetirizine 5 mg tablet 5 mg PO QDAY PRN fluticasone propionate [24 Hour Allergy Relief] 50 mcg/actuation spray,suspension 2 spray intranasal DAILY Rx Instructions: administer into each nostril Follow Up/Referrals: Provider,Not a Local [Primary Care Provider] - Stand Alone Forms: [facility] Info Instructions
[2023-12-17] MEDS: MORPHINE 10 MG/ML inj IM (19:31)
--- OUTSIDE RECORDS SUMMARY | 2023-12-17 19:39 | XMS_ITS | Clinical Summary ---
Author Name Unknown Organization [facility] Address [place], [place] [address] Care Team Providers Care Service Supervisor Name Role Phone Chris Magana MD Primary Care Provider + [phone] Allergies No known active allergies Medications Medication Sig Dispensed Refills Start Date End Date Status cetirizine (ZyrTEC) 10 mg tabletIndications:Envi ronmental allergies Take 1 Tablet (10 mg) by mouth once daily. 90 Tablet 3 03/03/2022 Active fluticasone (50 mcg per actuation) nasal solution (FLONASE)Indications:E ncounter for surveillance of contraceptive pills Inhale 2 Sprays to both nostrils once daily. 9.9 mL 5 04/28/2022 Active ondansetron (ZOFRAN ODT) 4 mg disintegrating tabletIndications:Lumb ar disc herniation Place 1 Tablet (4 mg) on the tongue every 8 hours if needed for Nausea/Vomiting . 10 Tablet 07/13/2023 Active docusate (COLACE) 100 mg capsuleIndications:Lum bar disc herniation Take 1 Capsule (100 mg) by mouth once daily if needed for Constipation. 10 Capsule 07/13/2023 Active methocarbamoL (ROBAXIN) 750 mg tabletIndications:Lumb ar radiculopathy,S/P lumbar discectomy Take 1 Tablet (750 mg) by mouth every 6 hours if needed for Muscle Spasm. 20 Tablet 10/12/2023 Active FLUoxetine (PROZAC) 40 mg capsuleIndications:Anx iety,Concentration deficit Take 1 Capsule (40 mg) by mouth once daily. 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 Patient with a history of this since 2004, right greater than left. Based on this I am recommending the patient undergo formal physical therapy, specifically for strengthening of the vastus medialis oblique muscle. Patient will have this physical therapy completed in [place] Second opinion got MRI and found complete anterior cruciate ligament tear =- Mild preeclampsia delivered 10/14/2021 Anxiety Encounters Date Type Department Care Team Description 12/06/2023 Lab Requisition [facility] [phone] Mary Carmen Kelly PA-C 11/22/2023 3:00 PM CDT Office Visit [address] [address] Stefanie Vasquez AuD Hearing Problem (Hearing test) 11/22/2023 Travel 11/09/2023 7:30 AM CDT Nurse/Clinic Staff Only [facility] [address] [place] [address] Testing (HST Return/Download) 11/08/2023 2:45 PM CDT Nurse/Clinic Staff Only [address] [address] Testing (HST Set-up) 11/08/2023 Procedure Only [address] [address] Antony Drake MD Results (Home Sleep Test) 11/08/2023 Travel 10/24/2023 2:15 PM ASSISTANT ART DIRECTOR Office Visit [facility] [address] [place] [address] Renetta Zazueta MD Physical (physical 38 years- wants referral for ADHD testing); Hearing Problem (hearing decreased in left ear more than right); Sleep Problem (thinks she has sleep apnea); Weight (wants to discuss weight loss medications-she's been on this medication before); (wants preg. test, home test was negative) 10/24/2023 Travel 10/12/2023 11:40 AM ASSISTANT ART DIRECTOR Office Visit [facility] [address] [place] [address] Chris Magana MD Back Pain 10/12/2023 Travel [...] of Communication with Friends and Fami ly Not on file 12/13/2023 Financial Resource Strain Answer Date R ecorded [...] Sex Assigned at Female 10/13/2021 10:40 AM ASSISTANT ART DIRECTOR Gender Identity Female 10/13/2021 10:40 AM ASSISTANT ART DIRECTOR Sexual Orientation Not on file Obstetrics History Last Filed Vital Signs Vital Sign Reading Time Taken Comments Blood Pressure 117/83 10/24/2023 2:15 PM ASSISTANT ART DIRECTOR Pulse 75 10/24/2023 2:15 PM ASSISTANT ART DIRECTOR Temperature 36.8 ??C (98.3 ??F) 07/13/2023 7:27 AM CS T Respiratory Rate 16 07/13/2023 7:27 AM ASSISTANT ART DIRECTOR Oxygen Saturation 97% 10/24/2023 2:15 PM ASSISTANT ART DIRECTOR Inhaled Oxygen Concentration - - Weight 95.3 kg (210 lb) 10/24/2023 2:15 PM ASSISTANT ART DIRECTOR Height 180.3 cm (5' 11) 10/24/2023 2:15 PM ASSISTANT ART DIRECTOR Body Mass Index 29.29 10/24/2023 2:15 PM ASSISTANT ART DIRECTOR Plan of Treatment Upcoming Encounters Date Type Department Care Team (Late st Contact Info) Description 01/17/2024 1:00 PM CDT Office Visit [facility] [address] [place] [address] Mic Llamas MD [address] [place] [address] Health Maintenance Due Date Last Done Comments HIV for age 15-65 2000 Hepatitis C screening for age 18-79 2003 COVID-19 vaccine series ( season) 2023 12/07/2020 Pap test for age 21-65 2024 9, 2019, 12/03/2015 [facility] Influenza for age 9-49 04/28/2024 06/10/2020 BMI [...] Procedure Name Priority Date/Time Associated Diagnosis Comments LAB TRACKING EVENT Routine 12/06/2023 1: 28 PM CDT PATH TISSUE EXAM Routine 12/05/2023 1:28 PM CDT HOME SLEEP STUDY UNATTENDED BY TECH Routine 11/08/2023 11:59 PM CDT Snoring HEMOGLOBIN A1C SCREENING Routine 10/24/2023 3:21 PM ASSISTANT ART DIRECTOR Screening for diabetes mellitus LIPID PANEL Routine 10/24/2023 3:21 PM ASSISTANT ART DIRECTOR Screening cholesterol level URINE Routine 10/24/2023 3:06 PM ASSISTANT ART DIRECTOR Late menses GUINEA PIG BREEDER THIN PREP PAP SCREEN IMAGED Routine 2019 4:43 PM CDT Pap smear for cervical cancer screening from Last 3 Months or Most Recently Relevant to Health Maintenance Results * LAB TRACKING EVENT (12/06/2023 1:28 PM CDT) Other (Other) Client Collect / Unknown 12/06/2023 1:28 PM CDT 12/06/2023 3:50 PM CDT Mary Carmen Kelly PA-C LAB BILL ONLY [facility] [address] [place] [address], * PATH TISSUE EXAM (12/05/2023 1:28 PM CDT) Case Report Pathology Report ?Case: [id number] ? Authorizing Provider: ??Mary Carmen Kelly PA-C ?Collected: ? 12/05/2023 1328 ? Ordering Location: ? [facility] ?Received: ?12/06/2023 1621 ? Pathologist: ? Puja Magallon MD ? Specimen: ?Endometrial ? 12/07/2023 4:05 PM CDT [facility] Final Diagnosis A) ENDOMETRIUM, BIOPSY: 1. Disordered proliferative endometrium with focal stromal breakdown 2. Negative for chronic endometritis 3. Negative for hyperplasia, atypia, and malignancy in this sample 12/07/2023 4:05 PM T [facility] Comment A) The endometrium exhibits a proliferative pattern with focal glandular budding and cystic change. These findings are consistent with unopposed (prolonged) estrogen effect and are often associated with anovulatory cycling in patients of reproductive age. The changes in this sample are less diffuse than those seen in hyperplasia. 12/07/2023 4:05 PM CDT [facility] Clinical Information Dysfunctional uterine bleeding, normal endometrial lining on pelvic ultrasound per clinical note (no polyp or fibroids) 12/07/2023 4:05 PM CDT [facility] Gross Description A) Received in formalin, labeled with the patient's name and endometrial, is a 1.6 x 1.5 x 0.4 cm aggregate of pink-bañuelos mucosa admixed with clotted blood and mucous. The specimen is entirely submitted in 1 cassette. EKW 12/06/2023 12/07/2023 4:05 PM CDT [facility] Microscopic Description The final diagnosis is based on microscopic examination of appropriate sections of all specimens. 12/07/2023 4:05 PM CDT [facility] Additional Information Interpreted at [facility] - [address] [place] [address] 12/07/2023 4:05 PM CDT [facility] Other SPECIMEN FROM ENDOMETRIUM / Unknown 12/05/2023 1:28 PM CDT 12/06/2023 4:21 PM CDT November Robin GRULLON PATHOLOGY/CYTOLOGY [facility] [address] [place] [address], * HOME SLEEP STUDY UNATTENDED BY TECH (11/08/2023 11:59 PM CDT) Narrative Antony Drake MD - 11/08/2023 11:59 PM CDT Antony Drake MD ? 11/16/2023 ??4:10 PM Home Sleep Test Name: ??Rosanne ??Irineo Location: ??[facility] Study notes: This is a single [...] and interpreted by a Diplomate of the [place] [employer]. ??An [id number] review of the data has been performed [...] * HEMOGLOBIN A1C SCREENING (10/24/2023 3:21 PM ASSISTANT ART DIRECTOR) HEMOGLOBIN A1C SCREENING 5.3 <=6.4 % 10/24/2023 9:29 PM ASSISTANT ART DIRECTOR [facility] Blood BLOOD SPECIMEN / Unknown Venipuncture / Unknown 10/24/2023 3:21 PM ASSISTANT ART DIRECTOR 10/24/2023 3:24 PM ASSISTANT ART DIRECTOR Narrative [facility] - 10/24/2023 9:29 PM ASSISTANT ART DIRECTOR ? (<5.7%) ?Normal ? (5.7% to 6.4%) ? Indicates prediabetes ? (>=6.5%) ? Confirms diabetes Falsely low levels may be seen with: Recent Transfusion, Recent Significant Blood Loss, Hemolytic Diseases, or Falsely elevated levels may be seen with: Untreated Anemias, Splenectomy Renetta Zazueta MD CHEMISTRY [facility] [address] [place] [address], * LIPID PANEL (10/24/2023 3:21 PM ASSISTANT ART DIRECTOR) CHOLESTEROL,TOTAL 177 100 - 199 mg/dL 10/24/2023 9:51 PM [facility] Comment: Cholesterol, Total Reference Ranges Desirable <200 mg/dL Borderline 200-239 mg/dL High >=240 mg/dL TRIGLYCERIDES 60 <150 mg/dL 10/24/2023 9:51 PM [facility] HDL CHOLESTEROL 63 >40 mg/dL 9:51 PM [facility] NON-HDL CHOLESTEROL 114 <145 mg/dl 10/24/2023 9:51 PM [facility] CHOL/HDL RATIO 2.81 <4.50 10/24/2023 9:51 PM [facility] LDL CHOLESTEROL 102 <=130 mg/dL 10/24/2023 9:51 PM [facility] VLDL CHOLESTEROL 12 <=30 mg/dL 10/24/2023 9:51 PM [facility] PROVIDER ORDERED STATUS RANDOM 10/24/2023 9:51 PM [facility] Blood BLOOD SPECIMEN / Unknown Venipuncture / Unknown 10/24/2023 3:21 PM ASSISTANT ART DIRECTOR 10/24/2023 3:24 PM ASSISTANT ART DIRECTOR Renetta Zazueta MD CHEMISTRY [facility] [address] [place] [address], * URINE (10/24/2023 3:06 PM ASSISTANT ART DIRECTOR) Pathologist [facility] ,URIN E Negative Negative 10/24/2023 3:11 PM ASSISTANT ART DIRECTOR [facility] Urine URINE SPECIMEN / Unknown Non-Blood / Unknown 10/24/2023 3:06 PM ASSISTANT ART DIRECTOR 10/24/2023 3:06 PM ASSISTANT ART DIRECTOR Renetta Zazueta MD URINE [facility] [address] [place] [address], * GUINEA PIG BREEDER THIN PREP PAP SCREEN IMAGED (2019 4:43 PM CDT) Pathologist [facility] Case Report Gynecologic Cytology Report ? Case: [id number] ? Authorizing Provider: ??Cassandra Teresa MD ? Collected: ? 2019 1643 ? Ordering Location: ? [facility] ?? Received: ?2019 1643 ? Clinic ? First Screen: ?Rohith Soliman ? Specimen: ?GUINEA PIG BREEDER ThinPrep Vial Screening, Cervical ? 05/06/2019 2:11 PM CDT [facility] INTERPRETATION/ RESULT NEGATIVE FOR INTRAEPITHELIAL LESION OR MALIGNANCY (NIL) (none) 05/06/2019 2:11 PM CDT [facility] IMEN ADEQUACY Satisfactory for evaluation Endocervical component present 05/06/2019 2:11 PM CDT [facility] HPV REQUEST HPV and PAP 05/06/2019 2:11 PM CDT [facility] Date of LMP 03/28/19 05/06/2019 2:11 PM CDT [facility] Last Pap Date 12/03/15 05/06/2019 2:11 PM CDT [facility] Last Pap Result NIL 2:11 PM CDT [facility] Abnormal Pap or [place] Bx in last 5 years No 05/06/2019 2:11 PM CDT [facility] Menstrual Status Regular Periods 05/06/2019 2:11 PM CDT [facility] [place] Bx Done Today No 05/06/2019 2:11 PM CDT [facility] Additional Information None given 05/06/2019 2:11 PM CDT [facility] Automated Review Successful 05/06/2019 2:11 PM CDT [facility] Comment:Specimen processed s uccessfully by automated grain unloader device, ThinPrep Imaging System, [employer] ANCILLARY TESTING GUINEA PIG BREEDER HPV Ordered, Please see separate report 05/06/2019 2:11 PM CDT [facility] Note The pap test [...] lesions. Cytology is screened and interpreted at [facility] - [address], [place] [address] and [facility] - [address]; [place] [address] and [facility] - [address]; [place] [address] and [facility] [address]; [place] [address] 05/06/2019 2:11 PM CDT [facility] Other (Cervical) Non-Blood / Unknown 2019 4:43 PM CDT 2019 4:43 PM CDT Cassandra Teresa MD PATHOLOGY/CYTOLOGY [facility] [address] [place] [address], [place] from Last 3 Months or Most Recently Relevant to Health Maintenance Advance Directives * Full Code (Latest Code Status on File) Date Activated Date Inactivated Comments 07/12/2023 5:26 PM 07/13/2023 2:07 PM Question Answer Comments Code Status Discussion: Unable to Assess Preferences, Provider to review later Care Teams Service Supervisor Relationship Specialty [place] [id number] [address] [place], [place] [id number] PCP - General Family Practice 07/07/23
--- OUTSIDE RECORDS SUMMARY | 2023-12-17 19:39 | XMS_ITS | Continuity of Care Document ---
Author Name Unknown Organization [facility] Address [address] [place] [address] Phone Care Team Providers Care Process Planner Name Role Phone Velvet Chatterjee MD Unavailable [...] - [place] 2022 Lami/Discectomy, Lumbar HNP Office/Outpatient Visit,[facility] 2022 Advance Directives Directive Yes / No Effective Date File Name No Information Encounters Encounter Description Practice Location Reason(s) For Visit Diagnoses Date Provider Providers Copied on Encounter [facility], [address], [facility] [address] [facility] [place], [id number], [place] tel:[phone] [facility] No Information Shena Verdin. [facility], [address], [place], [id number] , [place]. tel: [phone] OFFICE/OUTPAT IENT VISIT EST Phone [facility], [address], [place], [id number], [place] tel:[phone] [facility] Encounter for follow-up examination after completed treatment for conditions other than malignant neoplasmLow back pain 0 4 Mehbod Amir. [facility], [address] [place] [address] [address], [place], [id number] , [place]. tel: [phone] Referring Provider: Nisha Wood, [facility] [address], [place], [address]. tel:[phone] [facility], [address], [place], [id number], [place] tel:[phone] [facility] No Information 4 Mehbod Amir. [facility], [address] [place] [address] [address], [place], [id number] , [place]. tel: [phone] [facility], [address], [place], [id number], [place] tel:[phone] [facility] No Information 4 Mehbod Amir. [facility], [address], [place], [id number] , [place]. tel: [phone] Referring Provider: Nisha Wood [facility] [address], [place], [address]. tel:[phone] [facility], [address], [place], [id number], [place] tel:[phone] [facility] Encounter for other specified surgical aftercare 3 Mehbod Amir. [facility], [address] [place] [address] [address], [place], [id number] , [place]. tel:[phone] Referring Provider: Nisha Wood [facility] [address], [place], [address]. tel:[phone] [facility], [address], [place], [id number], [place] tel:[phone] [facility] No Information 3 Darryl Ibanez. [address] [place] [address], [place], [id number] , [place]. tel:[phone] Referring Provider: Nisha Wood [facility] [address], [place], [address]. tel:[phone] [facility], [address], [place], [id number], [place] tel:[phone] [facility] No Information 3 Mehbod Amir. [facility], [address] [place] [address] [address], [place], [place], [id number] , [place]. tel:[phone] Referring Provider: Nisha Wood [facility] [address], [place], [address]. tel:[phone] Office/Outpat ient Visit,New, [place] [facility], [address], [place], [id number], [place] tel:[phone] [facility] Other intervertebral disc displacement, lumbar regionRadiculop athy, lumbar region 3 Mehbod Amir. [facility], [address] [place] [address] [address], [place], [place], [id number] , [place]. tel:[phone] Referring Provider: Nisha Wood [facility] [address], [place], [address]. tel:[phone] Family History Family Member Type Diagnosis Age At Onset No Information Payers Payer name Insurance type Covered green party ID Elioiona mayelaanukr(s) [facility] [id number] Social History Type Description Quantity Date Captured [...]
--- NOTE | 2023-12-17 20:42 | CT_ITS ---
Patient: SG MARTINEZ Facility:?[facility] Patient ID:?[id number] Site Patient ID:?[id number]. Site :?[id number] Study:?CT-Abdomen/Pelvis W/100CC [id number]/21/2024 9:46:06 PM Ordering Physician:BERT Final Report: INDICATION: Right lower abdominal pain. TECHNIQUE: CT abdomen and pelvis acquired with 100 cc Isovue 370 IV contrast. COMPARISON: None. FINDINGS: Lower chest: Unremarkable. Liver: Unremarkable. Normal in size and attenuation. No suspicious masses. Gallbladder and bile ducts: Cholelithiasis. No inflammation. No biliary ductal dilatation. Spleen: Unremarkable. Normal in size. No masses. Adrenal glands: Unremarkable. No nodules. Pancreas: Unremarkable. No mass or inflammation. Kidneys: Unremarkable. No suspicious masses, stones, or hydronephrosis. GI tract: Unremarkable. Normal in caliber. No evidence of obstruction. Normal appendix. Lymph nodes: No lymphadenopathy. Vasculature: Unremarkable. Omentum/Peritoneum/Abdominal Wall: Trace free fluid in the pelvis, likely physiologic. No focal fluid collection. No free air. Pelvis: Unremarkable. Bones: Unremarkable for age. IMPRESSION: No acute abdominal or pelvic abnormality. Please note that all CT scans at this facility use dose modulation, iterative reconstruction, and/or weight-based dosing when appropriate to reduce radiation dose to as low as reasonably achievable. Dictated by Tj Carlson MD @ 12/17/2023 10:25:43 PM Signed by:?Tj Carlson MD @12/17/2023 10:25:43 PM (Electronic Signature)
[2023-12-17] MEDS: ONDANSETRON 2 MG/ML inj 4 MG IVP ×2 (20:55→22:11)
[2023-12-17 21:08] LABS: Basophils Absolute Auto 0.03 K/uL (0.00-0.30); Basophils Percent Auto 0.4 % (0.0-3.0); Eosinophils Absolute Auto 0.24 K/uL (0.00-0.50); Eosinophils Percent Auto 3.5 % (0.0-7.0); Hematocrit 37.8 % (33.0-51.0); Hemoglobin* 12.8 gm/dL (12.0-16.0); Immature Granulocytes Abs Auto 0.07 K/uL (0.00-0.30); Lymphocytes Absolute Auto 2.21 K/uL (0.90-2.90); Lymphocytes Percent Auto 32.5 % (20-44); Mean Corpuscular HGB Conc 34 gm/dL (32-36); Mean Corpuscular Hemoglobin 30 pg (26-34); Mean Corpuscular Volume 90 fL (80-100); Monocytes Percent Auto 8.1 % (0.0-11.0); Neutrophils Percent Auto 54.5 % (42.0-72.0); Platelet Count* 259 K/uL (140-440); Red Blood Count 4.22 m/uL (4.00-5.20)
[2023-12-17 21:12] LABS: Slide Review Reflex No
[2023-12-17 21:17] LABS: Chloride* 112 mmol/L (96-114); Sodium* 139 mmol/L (135-149)
[2023-12-17 21:18] LABS: Potassium* 3.8 mmol/L (3.6-5.1)
[2023-12-17 21:20] LABS: Creatinine* 0.7 mg/dL (0.5-1.5); Est. Creatinine Clearance* 121.79; Estimated Glomerular Filt Rate 113 ml/min
[2023-12-17 21:21] LABS: Anion Gap 1 mEq/L (7-15); Blood Urea Nitrogen* 15 mg/dL (5-24); Calcium* 8.2 mg/dL (8.4-10.6); Carbon Dioxide* 26 mmol/L (20-32); Glucose* 81 mg/dL (60-115)
== END 2023-12-17 22:47 | disposition home or self-care (01) ==
PROVIDERS: Emergency Provider Emergency Medicine Emergency Medical Services
DX: R10.9 Unspecified abdominal pain (principal)
CPT/HCPCS: 36415; 74177; 76830; 80048; 85025; 93976; 96372; 96374; 96376; 99283; 99284; J2270; J2405; Q9967

== ENCOUNTER 2023-12-20 08:53 | Day surgery (SDC) | payer OTHER, SELFPAY ==
[2023-12-20] VITALS (13 sets, daily range): BP systolic 127–153; BP diastolic 80–99; PULSE 58–87; RESP 16–20; TEMP 36.1–36.7; O2SAT 96–100; BMI 29.1
--- OUTSIDE RECORDS SUMMARY | 2023-12-20 08:54 | XMS_ITS | Clinical Summary ---
Author Name Unknown Organization [facility] Address [place], [place] [address] Care Team Providers Care Cable Splicer Apprentice Name Role Phone Chris Magana MD Primary Care Provider + [phone] Allergies No known active allergies Medications Medication [...] will have this physical therapy completed in [place] Second opinion got MRI and found complete anterior cruciate ligament tear =- Mild preeclampsia delivered 10/14/2021 Anxiety Encounters Date Type Department Care Team Description 12/06/2023 Lab Requisition [facility] [phone] Mary Carmen Kelly PA-C 11/22/2023 3:00 PM CDT Office Visit [address] [address] Stefanie Vasquez AuD Hearing Problem (Hearing test) 11/22/2023 Travel 11/09/2023 7:30 AM CDT Nurse/Clinic Staff Only [facility] [address] [place] [address] Testing (HST Return/Download) 11/08/2023 2:45 PM CDT Nurse/Clinic Staff Only [address] [address] Testing (HST Set-up) 11/08/2023 Procedure Only [address] [address] Antony Drake MD Results (Home Sleep Test) 11/08/2023 Travel 10/24/2023 2:15 PM SOCIAL WORKER Office Visit [facility] [address] [place] [address] Renetta Zazueta MD Physical (physical 38 years- wants referral for ADHD testing); Hearing Problem (hearing decreased in left ear more than right); Sleep Problem (thinks she has sleep apnea); Weight (wants to discuss weight loss medications-she's been on this medication before); (wants preg. test, home test was negative) 10/24/2023 Travel 10/12/2023 11:40 AM SOCIAL WORKER Office Visit [facility] [address] [place] [address] Chris Magana MD Back Pain 10/12/2023 Travel [...] Sex Assigned at Female 10/13/2021 10:40 AM SOCIAL WORKER Gender Identity Female 10/13/2021 10:40 AM SOCIAL WORKER Sexual Orientation Not on file Obstetrics History Last Filed Vital Signs Vital Sign Reading Time Taken Comments Blood Pressure 117/83 10/24/2023 2:15 PM SOCIAL WORKER Pulse 75 10/24/2023 2:15 PM SOCIAL WORKER Temperature 36.8 ??C (98.3 ??F) 07/13/2023 7:27 AM CS T Respiratory Rate 16 07/13/2023 7:27 AM SOCIAL WORKER Oxygen Saturation 97% 10/24/2023 2:15 PM SOCIAL WORKER Inhaled Oxygen Concentration - - Weight 95.3 kg (210 lb) 10/24/2023 2:15 PM SOCIAL WORKER Height 180.3 cm (5' 11) 10/24/2023 2:15 PM SOCIAL WORKER Body Mass Index 29.29 10/24/2023 2:15 PM SOCIAL WORKER Plan of Treatment Upcoming Encounters Date Type Department Care Team (Late st Contact Info) Description 01/17/2024 1:00 PM CDT Office Visit [facility] [address] [place] [address] Mic Llamas MD [address] [place] [address] Health Maintenance Due Date Last Done Comments HIV for age 15-65 2000 Hepatitis C screening for age 18-79 2003 COVID-19 vaccine series ( season) 2023 12/07/2020 Pap test for age 21-65 2024 9, 2019, 12/03/2015 [facility] Influenza for age 9-49 04/28/2024 06/10/2020 BMI [...] HEMOGLOBIN A1C SCREENING Routine 10/24/2023 3:21 PM SOCIAL WORKER Screening for diabetes mellitus LIPID PANEL Routine 10/24/2023 3:21 PM SOCIAL WORKER Screening cholesterol level URINE Routine 10/24/2023 3:06 PM SOCIAL WORKER Late menses PROP ATTENDANT THIN PREP PAP SCREEN IMAGED Routine 2019 4:43 PM CDT Pap smear for cervical cancer screening from Last 3 Months or Most Recently Relevant to Health Maintenance Results * LAB TRACKING EVENT (12/06/2023 1:28 PM CDT) Other (Other) Client Collect / Unknown 12/06/2023 1:28 PM CDT 12/06/2023 3:50 PM CDT Mary Carmen Kelly PA-C LAB BILL ONLY [facility] [address] [place] [address], * PATH TISSUE EXAM (12/05/2023 1:28 PM CDT) Case Report Pathology Report ?Case: [id number] ? Authorizing Provider: ??Mary Carmen Kelly PA-C ?Collected: ? 12/05/2023 1328 ? Ordering Location: ? [facility] ?Received: ?12/06/2023 1621 ? Pathologist: ? Puja Magallon MD ? Specimen: ?Endometrial ? 12/07/2023 4:05 PM CDT [facility] Final Diagnosis A) ENDOMETRIUM, BIOPSY: 1. Disordered proliferative endometrium with focal stromal breakdown 2. Negative for chronic endometritis 3. Negative for hyperplasia, atypia, and malignancy in this sample 12/07/2023 4:05 PM T [facility] Comment A) The endometrium exhibits a proliferative pattern with focal glandular budding and cystic change. These findings are consistent with unopposed (prolonged) estrogen effect and are often associated with anovulatory cycling in patients of reproductive age. The changes in this sample are less diffuse than those seen in hyperplasia. 12/07/2023 4:05 PM CDT [facility] Clinical Information Dysfunctional uterine bleeding, normal endometrial lining on pelvic ultrasound per clinical note (no polyp or fibroids) 12/07/2023 4:05 PM CDT [facility] Gross Description A) Received in formalin, labeled with the patient's name and endometrial, is a 1.6 x 1.5 x 0.4 cm aggregate of pink-bañuelos mucosa admixed with clotted blood and mucous. The specimen is entirely submitted in 1 cassette. EKW 12/06/2023 12/07/2023 4:05 PM CDT [facility] Microscopic Description The final diagnosis is based on microscopic examination of appropriate sections of all specimens. 12/07/2023 4:05 PM CDT [facility] Additional Information Interpreted at [facility] - [address] [place] [address] 12/07/2023 4:05 PM CDT [facility] Other SPECIMEN FROM ENDOMETRIUM / Unknown 12/05/2023 1:28 PM CDT 12/06/2023 4:21 PM CDT November Robin GRULLON PATHOLOGY/CYTOLOGY [facility] [address] [place] [address], * HOME SLEEP STUDY UNATTENDED BY TECH (11/08/2023 11:59 PM CDT) Narrative Antony Drake MD - 11/08/2023 11:59 PM CDT Antony Drake MD ? 11/16/2023 ??4:10 PM Home Sleep Test Name: ??Rosanne ??Irineo Location: ??[facility] Study notes: This is a [...] and interpreted by a Diplomate of the [place] [employer]. ??An [id number] review of the data has been performed [...] * HEMOGLOBIN A1C SCREENING (10/24/2023 3:21 PM SOCIAL WORKER) HEMOGLOBIN A1C SCREENING 5.3 <=6.4 % 10/24/2023 9:29 PM SOCIAL WORKER [facility] Blood BLOOD SPECIMEN / Unknown Venipuncture / Unknown 10/24/2023 3:21 PM SOCIAL WORKER 10/24/2023 3:24 PM SOCIAL WORKER Narrative [facility] - 10/24/2023 9:29 PM SOCIAL WORKER ? (<5.7%) ?Normal ? (5.7% to 6.4%) ? Indicates prediabetes ? (>=6.5%) ? Confirms diabetes Falsely low levels may be seen with: Recent Transfusion, Recent Significant Blood Loss, Hemolytic Diseases, or Falsely elevated levels may be seen with: Untreated Anemias, Splenectomy Renetta Zazueta MD CHEMISTRY [facility] [address] [place] [address], * LIPID PANEL (10/24/2023 3:21 PM SOCIAL WORKER) CHOLESTEROL,TOTAL 177 100 - 199 mg/dL 10/24/2023 9:51 PM [facility] Comment: Cholesterol, Total Reference Ranges Desirable <200 mg/dL Borderline 200-239 mg/dL High >=240 mg/dL TRIGLYCERIDES 60 <150 mg/dL 10/24/2023 9:51 PM [facility] HDL CHOLESTEROL 63 >40 mg/dL 9:51 PM [facility] NON-HDL CHOLESTEROL 114 <145 mg/dl 10/24/2023 9:51 PM [facility] CHOL/HDL RATIO 2.81 <4.50 10/24/2023 9:51 PM [facility] LDL CHOLESTEROL 102 <=130 mg/dL 10/24/2023 9:51 PM [facility] VLDL CHOLESTEROL 12 <=30 mg/dL 10/24/2023 9:51 PM [facility] PROVIDER ORDERED STATUS RANDOM 10/24/2023 9:51 PM [facility] Blood BLOOD SPECIMEN / Unknown Venipuncture / Unknown 10/24/2023 3:21 PM SOCIAL WORKER 10/24/2023 3:24 PM SOCIAL WORKER Renetta Zazueta MD CHEMISTRY [facility] [address] [place] [address], * URINE (10/24/2023 3:06 PM SOCIAL WORKER) Pathologist [facility] ,URIN E Negative Negative 10/24/2023 3:11 PM SOCIAL WORKER [facility] Urine URINE SPECIMEN / Unknown Non-Blood / Unknown 10/24/2023 3:06 PM SOCIAL WORKER 10/24/2023 3:06 PM SOCIAL WORKER Renetta Zazueta MD URINE [facility] [address] [place] [address], * PROP ATTENDANT THIN PREP PAP SCREEN IMAGED (2019 4:43 PM CDT) Pathologist [facility] Case Report Gynecologic Cytology Report ? Case: [id number] ? Authorizing Provider: ??Cassandra Teresa MD ? Collected: ? 2019 1643 ? Ordering Location: ? [facility] ?? Received: ?2019 1643 ? Clinic ? First Screen: ?Rohith Soliman ? Specimen: ?PROP ATTENDANT ThinPrep Vial Screening, Cervical ? 05/06/2019 2:11 PM CDT [facility] INTERPRETATION/ RESULT NEGATIVE FOR INTRAEPITHELIAL LESION OR MALIGNANCY (NIL) (none) 05/06/2019 2:11 PM CDT [facility] IMEN ADEQUACY Satisfactory for evaluation Endocervical component present 05/06/2019 2:11 PM CDT [facility] HPV REQUEST HPV and PAP 05/06/2019 2:11 PM CDT [facility] Date of LMP 03/28/19 05/06/2019 2:11 PM CDT [facility] Last Pap Date 12/03/15 05/06/2019 2:11 PM CDT [facility] Last Pap Result NIL 2:11 PM CDT [facility] Abnormal Pap or [place] Bx in last 5 years No 05/06/2019 2:11 PM CDT [facility] Menstrual Status Regular Periods 05/06/2019 2:11 PM CDT [facility] [place] Bx Done Today No 05/06/2019 2:11 PM CDT [facility] Additional Information None given 05/06/2019 2:11 PM CDT [facility] Automated Review Successful 05/06/2019 2:11 PM CDT [facility] Comment:Specimen processed s uccessfully by automated supervisor tellers device, ThinPrep Imaging System, [employer] ANCILLARY TESTING PROP ATTENDANT HPV Ordered, Please see separate report 05/06/2019 2:11 PM CDT [facility] Note The pap [...] lesions. Cytology is screened and interpreted at [facility] - [address], [place] [address] [facility] - [address]; [place] [address] and [facility] - [address]; [place] [address] and [facility] [address]; [place] [address] 05/06/2019 2:11 PM CDT [facility] Other (Cervical) Non-Blood / Unknown 2019 4:43 PM CDT 2019 4:43 PM CDT Cassandra Teresa MD PATHOLOGY/CYTOLOGY [facility] [address] [place] [address], [place] from Last 3 Months or Most Recently Relevant to Health Maintenance Advance Directives * Full Code (Latest Code Status on File) Date Activated Date Inactivated Comments 07/12/2023 5:26 PM 07/13/2023 2:07 PM Question Answer Comments Code Status Discussion: Unable to Assess Preferences, Provider to review later Care Teams Cable Splicer Apprentice Relationship Specialty [place] [address] [place], [place] [id number] PCP - General Family Practice 07/07/23
--- OUTSIDE RECORDS SUMMARY | 2023-12-20 08:54 | XMS_ITS | Continuity of Care Document ---
Author Name Unknown Organization [facility] Address [address] [place] [address] Phone Care Team Providers Care State Auditor Name Role Phone Velvet Chatterjee MD Unavailable [...] 3 days. then stop medicine. - Active FLUOXETINE HCL (unknown strength) Not Available - Active FLONASE SENSIMIST (unknown strength) Not Available - Active GABAPENTIN (unknown strength) Not Available - Active Procedures Procedure Date OFFICE/OUTPATIENT VISIT EST Phone POSTOP FOLLOW-UP VISIT Telephone 2023 Postop Followup Visit Lami/Discectomy, Lumbar HNP - [place] 2022 Lami/Discectomy, Lumbar HNP Office/Outpatient Visit,[facility] 2022 Advance Directives Directive Yes / No Effective Date File Name No Information Encounters Encounter Description Practice Location Reason(s) For Visit Diagnoses Date Provider Providers Copied on Encounter [facility], [address], [facility] [place], [id number], [place] tel:[phone] [facility] No Information Shena Verdin. [facility], [address], [place], [id number] , [place]. tel: [phone] OFFICE/OUTPAT IENT VISIT EST Phone [facility], [address], [place], [id number], [place] tel:[phone] [facility] Encounter for follow-up examination after completed treatment for conditions other than malignant neoplasmLow back pain 0 4 Mehbod Amir. [facility], [address] [place] [address] [address], [place], [id number] , [place]. tel: [phone] Referring Provider: Nisha Wood, [address], [place], [address]. tel:[phone] [facility], [address], [place], [id number], [place] tel:[phone] [facility] No Information 4 Mehbod Amir. [facility], [address] [place] [address] [address], [place], [id number] , [place]. tel: [phone] [facility], [address], [place], [id number], [place] tel:[phone] [facility] No Information 4 Mehbod Amir. [facility], [address], [place], [id number] , [place]. tel: [phone] Referring Provider: Nisha Wood [facility] [address], [place], [address]. tel:[phone] [facility], [address], [place], [id number], [place] tel:[phone] [facility] Encounter for other specified surgical aftercare 3 Mehbod Amir. [facility], [address] [place] [address] [address], [place], [id number] , [place]. tel:[phone] Referring Provider: Nisha Wood [facility] [address], [place], [address]. tel:[phone] [facility], [address], [place], [id number], [place] tel:[phone] [facility] No Information 3 Darryl Ibanez. [address] [place] [address], [place], [id number] , [place]. tel:[phone] Referring Provider: Nisha Wood [facility], [place], [address]. tel:[phone] [facility], [address], [place], [id number], [place] tel:[phone] [facility] No Information 3 Mehbod Amir. [facility], [address] [place] [address], [place], [place], [id number] , [place]. tel:[phone] Referring Provider: Nisha Wood [facility] [address], [place], [address]. tel:[phone] Office/Outpat ient Visit,New, Mod [facility], [address], [place], [id number], [place] tel:[phone] [facility] Other intervertebral disc displacement, lumbar regionRadiculop athy, lumbar region 3 Mehbod Amir. [facility], [address] [place] [address], [place], [place], [id number] , [place]. tel:[phone] Referring Provider: Nisha Wood [facility], [place], [address]. tel:[phone] Family History Family Member Type Diagnosis Age At Onset No Information Payers Payer name Insurance type Covered democrat ID Elioiona mayelaankur(s) [id number] Social History Type Description Quantity Date Captured [...]
[2023-12-20 09:37] LABS: Ur HCG Qualitative* Negative (Negative)
[2023-12-20] MEDS: LACTATED RINGERS 1000 ML 1,000 ML 100 ML IV ×2 (09:45→11:55)
[2023-12-20] MEDS: SODIUM CHLORIDE 0.9 % (FLUSH) 10 ML SYRINGE IVF (09:45)
[2023-12-20] MEDS: BUPIVACAINE 0.25% 30 ML INJECTION (12:00)
--- NOTE | 2023-12-20 12:15 | P.GYNPRC_ITS ---
Procedure Note Date of procedure: 12/20/23 Will [facility] bill your pro fee for this procedure?: Yes Pre-op diagnosis: Persistent right ovarian cysts. History of bilateral dermoid cysts, status post left oophorectomy and right ovarian cystectomy. Dysfunctional uterine bleeding. Recent episode of severe pelvic pain. Post-op diagnosis: Same + Endometriosis. Procedure: D&C. Laparoscopy with lysis of adhesions, right ovarian cyst aspiration, biopsy ad fulguration of endometriosis. Anesthesia: GETA Complications: None. Surgeon: Jessie Echeverria MD Bioinformatics Computer Scientist: Amairani Alvarez Estimated blood loss (mL): 10 Urine Output (mL): 50 Pathology: specimen obtained, sent to pathology (A - endometrial curettings, B - peritoneal biopsy, C - peritoneal biopsy near right tube, D - peritoneal biopsy) Condition: stable Disposition: PACU Findings: Small amount of bloody fluid in the pelvis. Normal uterus. Adhesions between bladder and lower uterine segment. Adhesions between omentum and anterior abdominal wall. Adhesions tethering the right ovary to the right pelvic sidewall. Endometriosis implants, dark in color, in the anterior cul-de-sac, one deep and one superficial lesion to the left of midline, and multiple hyperemic lesions in the anterior peritoneum near the right round ligament and fallopian tube. Adhesions involving the right fallopian tube to the peritoneum, causing the tube to bend back on itself near the right ovary such that the fimbrial end was near the right cornua. Normal left fallopian tube. Small left ovarian remnant. Normal appendix. Procedure Description: After obtaining informed consent, the patient was taken to the operating room where general anesthesia was obtained without difficulty. She was prepared and draped in the normal sterile fashion in the low dorsal lithotomy position. A Quan catheter was inserted into the bladder and left to gravity drainage. A medium Graves open-sided speculum was introduced into the vagina. The cervix was visualized and grasped along its anterior lip with a single-toothed tenaculum. The cervix was gently dilated with Hegar dilators to a number 6 dilator. The uterine lining was sharply curetted and a specimen obtained for pathology. A [employer] uterine manipulator was placed without difficulty. The tenaculum and speculum were removed. I then changed gloves and my attention was turned to the abdomen. The inferior aspect of the umbilical fold was injected with 0.25% Marcaine plain. A 5 mm vertical incision was then made within the umbilical fold using a scalpel. The subcutaneous tissues were bluntly dissected with a Luly clamp to the fascia. A direct entry technique was used to place a 5 mm laparoscopic port with CO2 gas set to a 5 mmHg. The trocar was removed leaving the sleeve in place. The CO2 gas flow was turned to high flow to achieve pneumoperitoneum. The 5 mm laparoscope was used then to carefully inspect the abdomen and pelvis with findings noted above. Pictures were taken for documentation purposes. The patient was placed in Trendelenburg positioning. Two additional 5 mm ports were placed in the right and left lower quadrants under direct visualization after first anesthetizing the skin and fascia with 0.25% Marcaine plain. The uterus was elevated using the uterine manipulator. The bowels were gently pushed from the pelvis cephalad with an atraumatic graspers. Attention was first turned to the omental adhesions. These were lysed using the Olympus Powerseal bipolar electrocautery/cutting device. Excellent hemostasis was visualized. Next, the right ovary was carefully inspected. A simple cyst on the medial aspect was ruptured and the cyst drained of clear fluid. The peritoneum was opened superior to the ovary where the ovary was adherent to the pelvic sidewall with the Olympus Powerseal. The peritoneal dissection was continued until the ovary was freed up from the pelvic sidewall, taking care to avoid the underlying right infundibulopelvic ligament and the adjacent right fallopian tube. A small peritubal or peritoneal inclusion cyst that was attached to the right fallopian tube distally was ruptured and drained of clear fluid. The decision was made not to lyse the adhesions involving the right tube itself because the tube and fimbria were otherwise normal in appearance and caliber albeit tortuous, as I did not want to cause damage to the tube. The anterior and posterior cul-de-sacs were carefully inspected. Endometriosis was identified on the anterior peritoneum. Two darkly colored implants were noted to the left of midline. The adjacent peritoneum was grasped with a Fliplingojoselyn graspers, elevated, and the Olympus power seal was used to open the peritoneum and excise the implants. There were a number of hyperemic-appearing implants to the right of midline, near the right round ligament and right fallopian tube. A small grouping of these implants were excised with a small segment of peritoneum. The remaining implants were fulgurated with monopolar electrocautery. The abdomen and pelvis was then copiously irrigated. Pictures were taken for documentation purposes.All instruments were then removed under direct visualization. Pneumoperitoneum was allowed to escape. The skin at all 3 port sites was closed in a subcuticular fashion with 4-0 Vicryl. Surgical glue was then placed over the incisions. The uterine manipulator and Quan catheter were removed. The patient tolerated the procedure well. Sponge, lap, and needle counts were correct x2. The patient was taken to the recovery room awake and in stable condition.
--- NOTE | 2023-12-20 12:32 | W.ANESCHARGE ---
Anesthesia Charges Start Date/Time Anesthesia Start Date: 12/20/23 Anesthesia Start Time: 10:45 Stop Date/Time Anesthesia Stop Date: 12/20/23 Anesthesia Stop Time: 12:20
--- NOTE | 2023-12-20 12:32 | W.ANESCHARGE ---
Anesthesia Charges Start Date/Time Anesthesia Start Date: 12/20/23 Anesthesia Start Time: 10:45 Stop Date/Time Anesthesia Stop Date: 12/20/23 Anesthesia Stop Time: 12:20
[2023-12-20] MEDS: HYDROmorphone 0.5 mg/0.5 ml inj IVP (12:33)
[2023-12-20] MEDS: ONDANSETRON 2 MG/ML inj 4 MG IVP (12:43)
== END 2023-12-20 13:45 | disposition home or self-care (01) ==
PROVIDERS: Visit Provider Obstetrics & Gynecology
PROC: (CPT 58662; principal; 2023-12-20 10:30)
DX: N83.291 Other ovarian cyst, right side (principal); N80.312 Deep endometriosis of the anterior cul-de-sac; N80.311 Superficial endometriosis of the anterior cul-de-sac; N73.6 Female pelvic peritoneal adhesions (postinfective); R10.2 Pelvic and perineal pain; N93.8 Other specified abnormal uterine and vaginal bleeding
CPT/HCPCS: 49322; 58662; 00840; 81025; 88305; J0330; J0665; J1100; J1170; J1630; J1885; J2250; J2405; J2704; J2710; J3010; J7120

== ENCOUNTER 2024-04-02 09:45 | Outpatient (RCR) | payer OTHER, SELFPAY | END 2024-07-31 23:59 | disposition home or self-care (01) | PROVIDERS: Visit Provider Family Medicine | DX: M47.816 Spondylosis without myelopathy or radiculopathy, lumbar region (principal); M54.51 Vertebrogenic low back pain; Z51.89 Encounter for other specified aftercare | CPT/HCPCS: 97110; 97112; 97140; 97161; 97530 ==

== ENCOUNTER 2024-08-09 10:22 | Outpatient (CLI) | payer OTHER, SELFPAY ==
[2024-08-11 01:05] LABS: HPV Source Cervical; HPV, High Risk by TMA Not Detected
[2024-08-19 17:01] LABS: Pap Test Reviewed by Path Done
== END 2024-08-09 10:23 | disposition home or self-care (01) ==
PROVIDERS: Visit Provider Obstetrics & Gynecology
DX: Z12.4 Encounter for screening for malignant neoplasm of cervix (principal)
CPT/HCPCS: 87624; 87625; 88141; 88142

== ENCOUNTER 2025-02-24 09:23 | Emergency (ER) | payer OTHER, SELFPAY ==
--- OUTSIDE RECORDS SUMMARY | 2025-02-24 09:26 | XMS_ITS | Clinical Summary ---
Author Organization [facility] Address [address] [place] [address] Care Team Providers Care Vascular Physician Name Role Phone Renetta Zazueta MD Primary Care Prov ider Allergies No known active allergies Medications cetirizine (ZyrTEC) 10 mg tabletIndications :Environmental allergies Take 1 Tablet (10 mg) by mouth once daily. 90 Tablet 3 03/03/20 22 Active gabapentin (NEURONTIN) 300 mg capsuleIndication s:Lumbar facet arthropathy Take 1 Capsule (300 mg) by mouth at bedtime. 30 Capsule 2 01/08/20 24 Active amitriptyline (ELAVIL) 25 mg tabletIndications :Awakens from sleep due to pain Take 1-2 Tablets (25-50 mg) by mouth at bedtime. 36 Tablet 1 01/17/20 24 Active HYDROcodone-aceta minophen (5-325 mg/tablet)Indicat ions:Lumbar facet arthropathy Take 1 Tablet by mouth 3 times daily if needed for Pain. Max acetaminophen dose: 4000 mg in 24 hrs. 20 Tablet 03/29/20 24 Active FLUoxetine (PROZAC) 40 mg capsuleIndication s:Anxiety,Concent ration deficit Take 1 Capsule (40 mg) by mouth once daily. 90 Capsule 3 04/26/20 24 Active fluticasone (50 mcg per actuation) nasal solution (FLONASE)Indicati ons:Encounter for surveillance of contraceptive pills Inhale 2 Sprays in both nostrils once daily. 9.9 mL 5 07/08/20 24 Active dextroamphetamine -amphetamine (Adderall XR) 20 mg Extended-Release capsuleIndication s:Attention deficit hyperactivity disorder (ADHD), combined type Take 1 Capsule (20 mg) by mouth once daily. 15 Capsule 08/09/20 24 Active dextroamphetamine -amphetamine (Adderall XR) 20 mg Extended-Release capsuleIndication s:Attention deficit hyperactivity disorder (ADHD), combined type Take 1 Capsule (20 mg) by mouth once daily. 30 Capsule 11/09/19 25 Active Active Problems Problem Noted Date Diagnosed Date Attention deficit hyperactiv ity disorder (ADHD), combined type 07/08/2024 Old complete ACL tear, left 04/17/2023 Overview (04/17/2023): Orthopedics 11/2022 consistent with chronic bilateral patellar subluxations. Patient with a history of this since 2004, right greater than left. Based on this I am recommending the patient undergo formal physical therapy, specifically for strengthening of the vastus medialis oblique muscle. Patient will have this physical therapy completed in [place] Second opinion got MRI and found complete anterior cruciate ligament tear =- Mild preeclampsia delivered 10/14/2021 Anxiety Encounters Date Type Department Care Team Description 02/24/2025 Nurse Triage [facility] [address] [place] [address] Renetta Zazueta MD Head Pain/problem from Last 3 Months Immunizations Immunization Administration Dates Next Due DT (Age < 7 years) 09/14/2004 DTP 04/03/1991,1985,1985 ,1985 Hepatitis B, Unspecified 01/05/1998,11/03/1997,0 09/08/1997 INFLUENZA, IIV3 PF (AGE >= 6 MO) 07/08/2024 Influenza, IIV4 06/10/2020 MMR 04/03/1991 Meningococcal Vaccine [...] PHQ-2 Answer Date Recorded PHQ-2 TOTAL SCORE 0 06/12/2024 Social Connections Answer Date Recorded Do you often feel lonely or isolated from those around you? 0 01/13/2024 Financial Resource Strain Answer Date R ecorded Difficulty of Paying Living Expenses 3 01/13/2024 Difficulty of Paying Living Expenses Not on file 01/13/2024 Food Insecurity Answer Date Recorded Do you worry your food will run out before you are able to buy more? 1 01/13/2024 Transportation Needs Answer Date Record ed Does lack of transportation keep you from medica l appointments? 1 01/13/2024 Does lack of transportation keep you from work, meetings or getting things that you need? 1 01/13/2024 Housing Stability Answer Date Recorded What is your housing situation today? 1 01/13/2024 Utilities Answer Date Recorded Do you have trouble paying f or utilities (for example, heat, electricity, water, phone)? 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 Not on file Not on file Not on file Obstetrics History Last Filed Vital Signs Vital Sign Reading Time Taken Comments Blood Pressure 119/86 07/08/2024 8:32 AM [employer] Pulse 62 07/08/2024 8:32 AM [employer] Temperature 36.8 C (98.2 F) 03/11/2024 10:06 AM CDT Respiratory Rate 16 07/13/2023 7:27 AM [employer] Oxygen Saturation 98% 07/08/2024 8:32 AM [employer] Inhaled Oxygen Concentration - - Weight 94.3 kg (207 lb 12.8 oz) 024 10:06 AM CDT Height 180.3 cm (5' 11) 10/24/2023 2:15 PM [employer] Body Mass Index 28.98 10/24/2023 2:15 PM [employer] Plan of Treatment Upcoming Encounters Date Type Department Care Team (Late st Contact Info) Description 03/28/2025 10:35 AM CDT Office Visit [facility] [address] [place] [address] Nancy White Rina, DO [address] [place] [address] Health Maintenance Due Date Last Done Comments HIV for age 15-65 2000 Hepatitis C screening for age 18-79 2003 COVID-19 vaccine series ( season) 2024 12/07/2020 BMI (ht and wt on same day) for age 18+ 10/24/2024 10/24/2023, 10/12/2023, 07/10/2023, Additional history exists Depression screening for age 12+ 06/13/2025 06/13/2024, 06/12/2024, 05/10/2024, Additional history exists Tetanus booster 10/13/2025 10/13/2015 Pap test for age 21-65 08/12/2029 (Completed outside of [facility]), 2019 (Completed outside of [facility]), 2019, Additional history exists Hepatitis B series for 19+ Completed 01/05, 11/03/1997, 09/08/1997 Tdap Completed 10/13/2015 Influenza Vaccine Completed 07/08/2024, 06/10/2020 Pneumococcal series for age 6-49 Aged Out No longer eligible based on patient's age to complete this topic Procedures Procedure Name Priority Date/Time Associated Diagnosis Comments IND[employer]RIAL [employer]ER THIN PREP PAP SCREEN IMAGED Routine 2019 4:43 PM CDT Pap smear for cervical cancer screening from Last 3 Months or Most Recently Relevant to Health Maintenance Results * INDUSTRIAL CLE[employer]ER THIN PREP PAP SCREEN IMAGED (2019 4:43 PM CDT) Case Report Gynecologic Cytology Report Case: [id number] Authorizing Provider: Cassandra Teresa MD Collected: 2019 1643 Ordering Location: [facility] Received: 2019 1643 Clinic First Screen: Rohith Soliman Specimen: INDUSTRIAL CLEANER ThinPrep Vial Screening, Cervical 05/06/2019 2:11 PM CDT [facility] ENTRAL LABORATORY INTERPRETATION/ RESULT NEGATIVE FOR INTRAEPITHELIAL LESION OR MALIGNANCY (NIL) (none) 05/06/2019 2:11 PM CDT [facility] ENTRAL LABORATORY at 1411 CDT SPECIMEN ADEQUACY Satisfactory for evaluation Endocervical component present 05/06/2019 2:11 PM CDT [facility] HPV REQUEST HPV and PAP 05/06/2019 2:11 PM CDT [facility] Date of LMP 03/28/19 05/06/2019 2:11 PM CDT [facility] Last Pap Date 12/03/15 05/06/2019 2:11 PM CDT [facility] ENTRAL LABORATORY Last Pap Result NIL 9 2:11 PM CDT [facility] Abnormal Pap or [place] Bx in last 5 years No 05/06/2019 2:11 PM CDT [facility] Menstrual Status Regular Periods 05/06/2019 2:11 PM CDT [facility] [place] Bx Done Today No 05/06/2019 2:11 PM CDT [facility] Additional Information None given 05/06/2019 2:11 PM CDT [facility] ENTRAL LABORATORY Automated Review Successful 05/06/2019 2:11 PM CDT [facility] EN[facility] Comment:Specimen processed s uccessfully by automated cryptologic technician operator/analyst device, ThinPrep Imaging System, [employer] ANCILLARY TESTING INDUSTRIAL CLEANER HPV Ordered, Please see separate report 05/06/2019 2:11 PM CDT [facility] EN[facility] Note The pap test is a screening technique, not a diagnostic procedure. It is used primarily to screen for squamous cancers and precursor lesions. Published studies have shown that it is subject to both false negative and false positive results. The pap test should not be used as the sole means to diagnose or exclude pre-malignant and malignant lesions. Cytology is screened and interpreted at [facility] - [address], [place] [address] and [facility] - [address]; [place] [address] and [facility] - [address]; [place] [address] and [facility] [address]; [place] [address] 05/06/2019 2:11 PM CDT [facility]ORAT[facility]-C ENTRAL LABORATORY Other (Cervical) Non-Blood / Unknown 2019 4:43 PM CDT 2019 4:43 PM CDT us Cassandra Teresa MD PATHOLOGY/CYTOLOGY Final Resu lt [facility] [address] [place] [address], [place] from Last 3 Months or Most Recently Relevant to Health Maintenance Insurance [place] [id number] Advance Directives * Full Code (Latest Code Status on File) Date Activated Date Inactivated Comments 07/12/2023 5:26 PM 07/13/2023 2:07 PM Question Answer Comments Code Status Discussion: Unable to Assess Preferences, Provider to review later Care Teams Vascular Physician Relationship Specialty Start Date End Date Renetta Zazueta MD [address] [place] [address] PCP - General Family Practice 07/08/24
[2025-02-24 09:27] VITALS: BP 137/88; PULSE 76; RESP 16; TEMP 36.4; O2SAT 96; BMI 27.1
--- NOTE | 2025-02-24 09:40 | ED_ITS ---
HPI - General Adult General Date Seen: 02/24/25 <Nisha Bell MD - Last Filed: 02/24/25 13:30> Chief complaint: Neuro Symptoms/Altered Deficit <Nisha Bell MD - Last Filed: 02/24/25 13:30> Stated complaint: been shaking her head, <Nisha Bell MD - Last Filed: 02/24/25 13:30> Time Seen by Provider: 02/24/25 09:40 <Nisha Bell MD - Last Filed: 02/24/25 13:30> Source: patient, RN notes reviewed and old records reviewed <Nisha Bell MD - Last Filed: 02/24/25 13:30> Mode of arrival: ambulatory <Nisha Bell MD - Last Filed: 02/24/25 13:30> Limitations: no limitations <Nisha Bell MD - Last Filed: 02/24/25 13:30> History of Present Illness HPI narrative: Sg is a very pleasant 39-year-old female with history of endometriosis, currently menstruating, lumbar radiculopathy status post cystectomy who comes to the emergency room with complaints of abnormal head movement for approximately 1 week. Sg notes that when she has been awakening in the morning she has been experiencing 20-30 seconds of abnormal head movement. This morning it lasted for up to 1 minute. She notes that her head turns from side to side (rotation). During the time she is fully aware of this. She can not make it stop. She denies any unusual blinking visual changes numbness or tingling in on the parts of the body. She denies a headache but does note her neck is sore. She has not had fever chills. She notes that she has ?felt out of it? for the past week. Sg has not had any recent head trauma, history of seizures, history of sleep walking or sleep disorders. She denies and difficulty with ambulation or doing her work during the day. <Nisha Bell MD - Last Filed: 02/24/25 13:30> Related Data Home medications: Home Medications ?Medication ?Instructions ?Recorded ?Confirmed fluticasone propionate 50 2 spray intranasal DAILY 02/24/25 mcg/actuation nasal spray,suspension (24 Hour Allergy Relief) cetirizine 5 mg tablet 5 mg PO QDAY PRN 12/05/23 fluoxetine 40 mg capsule 40 mg PO DAILY 03/18/2401/28 dextroamphetamine-amphetamine ER 20 mg PO QAM 09/13/24 02/24/25 20 mg 24hr capsule,extend release (Adderall XR) Held on 02/24/25. Instructions: Doctor's Order Previous Rx's ?Medication ?Instructions ?Recorded cyclobenzaprine 10 mg tablet 10 mg PO TID PRN muscle s pasm #30 02/24/25 tabs <Nisha Bell MD - Last Filed: 02/24/25 13:30> Allergies/adverse reactions: Allergies Allergy/AdvReac Type Severity Reaction Status Date / Time No Known Drug Allergies Allergy Verified 09/13/24 09:44 <Nisha Bell MD - Last Filed: 02/24/25 13:30> Review of Systems Status of ROS: Reports: 10 or more systems reviewed and unremarkable except as noted in History and below <Nisha Bell MD - Last Filed: 02/24/25 13:30> Const: Reports: fatigue; Denies: fever or chills <Nisha Bell MD - Last Filed: 02/24/25 13:30> Eyes: Denies: change in vision or blurry vision <Nisha Bell MD - Last Filed: 02/24/25 13:30> ENMT: Reports: neck pain; Denies: throat pain, vertigo or nasal congestion <Nisha Bell MD - Last Filed: 02/24/25 13:30> Cardio: Denies: chest pain or shortness of breath with exertion <Nisha Bell MD - Last Filed: 02/24/25 13:30> Resp: Denies: shortness of breath or cough <Nisha Bell MD - Last Filed: 02/24/25 13:30> GI: Denies: abdominal pain, nausea or vomiting <Nisha Bell MD - Last Filed: 02/24/25 13:30> Musculo: Reports: neck pain <Nisha Bell MD - Last Filed: 02/24/25 13:30> Neuro: Denies: headache, weakness in extremities, lack of coordination, dizziness or vertigo <Nisha Bell MD - Last Filed: 02/24/25 13:30> Endo: Reports: fatigue <Nisha Bell MD - Last Filed: 02/24/25 13:30> [facility] Medical History: Medical History Anxiety ?F41.9 - Anxiety disorder, unspecified (ICD-10) Transfusion of blood during current hospitalization Severe pre-eclampsia affecting childbirth ?O14.14 - Severe pre-eclampsia complicating childbirth (ICD-10) hemorrhage ?O72.1 - Other immediate hemorrhage (ICD-10) Generalized anxiety disorder ?F41.1 - Generalized anxiety disorder (ICD-10) Dermoid cyst of both ovaries ?D27.0 - Benign neoplasm of right ovary (ICD-10) ?D27.1 - Benign neoplasm of left ovary (ICD-10) Anemia due to acute blood loss ?D62 - Acute posthemorrhagic anemia (ICD-10) Depression ?F32.A - Depression, unspecified (ICD-10) Hypertension ?I10 - Essential (primary) hypertension (ICD-10) <Nisha Bell MD - Last Filed: 02/24/25 13:30> Surgical History: Surgical History History of discectomy (~06/2023) ?Z98.890 - Other specified postprocedural states (ICD-10) History of arthroscopy of right knee (05/17/23) ?Z98.890 - Other specified postprocedural states (ICD-10) Previous section ?Z98.891 - History of uterine scar from previous surgery (ICD-10) Status post primary low transverse section (06/19/21) ?Z98.891 - History of uterine scar from previous surgery (ICD-10) Status post ovarian cystectomy (06/19/21) ?Z98.890 - Other specified postprocedural states (ICD-10) ?Z87.42 - Personal history of other diseases of the female genital tract (ICD-10) Status post left oophorectomy (06/19/21) ?Z90.721 - Acquired absence of ovaries, unilateral (ICD-10) <Nisha Bell MD - Last Filed: 02/24/25 13:30> Family History: Family History Other Stroke <Nisha Bell MD - Last Filed: 02/24/25 13:30> Social History: Social History 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 . Former cigarette smoker, quit 2020. Recently started vaping. Smoking Status: Current every day smoker Do you use any of these nicotine containing products: E-Cigarettes and Vaping Products Second hand tobacco smoke exposure: No How often do you have a drink containing alcohol: 2-4 times a month How many standard drinks containing alcohol do you have on a typical day: 5 or 6 How often do you have six or more drinks on one occasion: Never AUDIT-C Alcohol total score: 4 Non-prescribed substance use: marijuana (any form) Caffeine: Yes Are you using contraception or practicing any form of control: No <Nisha Bell MD - Last Filed: 02/24/25 13:30> Exam Narrative: Exam Narrative: Alert and oriented. No acute distress. Mentation and speech normal. EOM is full. Pupils equal round reactive. Face symmetrical with eyebrow raise smile and tongue is midline. Palpation of neck shows it to be soft supple without lymphadenopathy. Heart with regular rate and rhythm and lungs are clear. Romberg is negative. Upper extremity strength and motor is intact. Lower ex tremity strength and motor is intact. <Nisha Bell MD - Last Filed: 02/24/25 13:30> Const: Vital Signs, click to edit/add: Vital Signs - 24 hr 02/24/25 09:27 02/24/25 13:31 Temperature 97.5 F L Pulse Rate 53 L Pulse Rate [Pulse Oximeter] 76 Respiratory Rate 16 16 Blood Pressure 141/87 H Blood Pressure [Ri ght Upper Arm] 137/88 Pulse Oximetry 96 99 Oxygen Delivery Me thod Room Air Room Air <Nisha Bell MD - Last Filed: 02/24/25 13:30> Vital Signs, click to edit/add: Vital Signs - 24 hr 02/24/25 09:27 02/24/25 13:31 Temperature 97.5 F L Pulse Rate 53 L Pulse Rate [Pulse Oximeter] 76 Respiratory Rate 16 16 Blood Pressure 141/87 H Blood Pressure [Ri ght Upper Arm] 137/88 Pulse Oximetry 96 99 Oxygen Delivery Me thod Room Air Room Air <Farzaneh Urena MD - Last Filed: 02/24/25 14:42> Documenting provider has reviewed patient's vital signs: yes <Nisha Bell MD - Last Filed: 02/24/25 13:30> Course Course ED Course: Differential diagnosis includes but is not limited to seizure, tumor, cervical spine pathology, anxiety. At this time will obtain head and cervical spine CTs along with blood work to include CBC and basic panel and CRP. Will plan on talking to Neurology once results have been returned. <Nisha Bell MD - Last Filed: 02/24/25 13:30> Reevaluation(s) Reevaluation #1: Head and cervical spine CTs without any acute abnormalities with the exception of some straightening of the normal lordosis of the cervical spine. <Nisha Bell MD - Last Filed: 02/24/25 13:30> Time of Reevaluation #2: 14:33 <Farzaneh Urena MD - Last Filed: 02/24/25 14:42> Reevaluation #2: Have reviewed normal MRI imaging with patient, provided her with copies. Did also add on a total CK which has come back normal. Plan will be for trial of muscle relaxant, [id number] Tylenol and ibuprofen. We did discuss following up with her primary care provider and if ongoing symptoms, Neurology still may need to be consulted but there is no emergent need at this time. She prefers the Flexeril to be sent to her pharmacy. <Farzaneh Urena MD - Last Filed: 02/24/25 14:42> Consultations Consultation #1: I had the pleasure of speaking to Dr. Solomon Neurology. Does suggest MRI with and without contrast of the neck and brain. Patient is in agreement and this is pending. If normal, reassurance and discharged home on muscle relaxer. <Nisha Bell MD - Last Filed: 02/24/25 13:30> Vital Signs Vital signs: Initial Vital Signs Temperature 97.5 F L 02/24/25 09:27 Temperature Source Temporal Artery Scan 02/24/25 09:27 Pulse Rate 76 02/24/25 09:27 Respiratory Rate 16 02/24/25 09:27 Blood Pressure 137/88 02/24/25 09:27 Blood Pressure Mean 104 02/24/25 09:27 Blood Pressure Position Sitting 02/24/25 09:27 Pulse Oximetry 96 02/24/25 09:27 Oxygen Delivery Method Room Air 02/24/25 09:27 Vital Signs Temperature 97.5 F L 02/24/25 09:27 Pulse Rate 76 02/24/25 09:27 Respiratory Rate 16 02/24/25 09:27 Blood Pressure 137/88 02/24/25 09:27 Pulse Oximetry 96 02/24/25 09:27 Oxygen Delivery Method Room Air 02/24/25 09:27 Temperature 97.5 F L 02/24/25 09:27 Pulse Rate 53 L 02/24/25 13:31 Respiratory Rate 16 02/24/25 13:31 Blood Pressure 141/87 H 02/24/25 13:31 Pulse Oximetry 99 02/24/25 13:31 Oxygen Delivery Method Room Air 02/24/25 13:31 <Nisha Bell MD - Last Filed: 02/24/25 13:30> Initial Vital Signs Temperature 97.5 F L 02/24/25 09:27 Temperature Source Temporal Artery Scan 02/24/25 09:27 Pulse Rate 76 02/24/25 09:27 Respiratory Rate 16 02/24/25 09:27 Blood Pressure 137/88 02/24/25 09:27 Blood Pressure Mean 104 02/24/25 09:27 Blood Pressure Position Sitting 02/24/25 09:27 Pulse Oximetry 96 02/24/25 09:27 Oxygen Delivery Method Room Air 02/24/25 09:27 Vital Signs Temperature 97.5 F L 02/24/25 09:27 Pulse Rate 76 02/24/25 09:27 Respiratory Rate 16 02/24/25 09:27 Blood Pressure 137/88 02/24/25 09:27 Pulse Oximetry 96 02/24/25 09:27 Oxygen Delivery Method Room Air 02/24/25 09:27 Temperature 97.5 F L 02/24/25 09:27 Pulse Rate 53 L 02/24/25 13:31 Respiratory Rate 16 02/24/25 13:31 Blood Pressure 141/87 H 02/24/25 13:31 Pulse Oximetry 99 02/24/25 13:31 Oxygen Delivery Method Room Air 02/24/25 13:31 <Farzaneh Urena MD - Last Filed: 02/24/25 14:42> Medical Decision Making MDM Narrative Medical decision making narrative: 1. Abnormal neck movement-MRI of brain and neck with and without contrast pending. 2. Disposition-will sign this out to my colleague Dr. Beckwith <Nisha Bell MD - Last Filed: 02/24/25 13:30> Medical Records Medical records reviewed: Yes I reviewed the patient's medical records <Nisha Bell MD - Last Filed: 02/24/25 13:30> Lab Data Lab results reviewed: Yes I reviewed the patient's lab results <Nisha Bell MD - Last Filed: 02/24/25 13:30> Labs: Lab Results 02/24/25 02/24/25 Range/Units 10:00 13:59 WBC 4.81 (4.50-11.00) K/uL RBC 4.53 (4.00-5.20) m/uL Hgb 13.9 (12.0-16.0) gm/dL Hct 41.2 (33.0-51.0) % MCV 91 (80-100) fL MCH 31 (26-34) pg MCHC 34 (32-36) gm/dL RDW Coeff of Destiny 12.4 (11.5-15.5) % Plt Count 212 (140-440) K/uL Neut % (Auto) 66.1 (42.0-72.0) % Lymph % (Auto) 23.5 (20-44) % [place] % (Auto) 6.7 (0.0-11.0) % Eos % (Auto) 3.1 (0.0-7.0) % Baso % (Auto) 0.4 (0.0-3.0) % Neut # (Auto) 3.18 (1.7-7.0) K/uL Lymph # (Auto) 1.13 (0.90-2.90) K/uL [place] # (Auto) 0.30 (0.00-0.90) K/UL Eos # (Auto) 0.15 (0.00-0.50) K/uL Baso # (Auto) 0.02 (0.00-0.30) K/uL Abs Immat Gran (auto) 0.01 (0.00-0.30) K/uL Imm/Tot Granulo (auto) 0.2 % Sodium 138 (135-149) mmol/L Potassium 4.0 (3.6-5.1) mmol/L Chloride 105 (96-114) mmol/L Carbon Dioxide 27 (20-32) mmol/L Anion Gap 6 L (7-15) mEq/L BUN 12 (5-24) mg/dL Creatinine 0.7 (0.5-1.5) mg/dL Estimated Creat Clear 124.52 Estimated GFR 113 ml/min Glucose 80 (60-115) mg/dL Calcium 8.9 (8.4-10.6) mg/dL Total Creatine Kinase 67 (41-117) U/L C-Reactive Protein < 0.5 L (0.5-1.0) mg/dL Lab Acknowledgement Test Added <Nisha Bell MD - Last Filed: 02/24/25 13:30> Lab Results 02/24/25 02/24/25 Range/Units 10:00 13:59 WBC 4.81 (4.50-11.00) K/uL RBC 4.53 (4.00-5.20) m/uL Hgb 13.9 (12.0-16.0) gm/dL Hct 41.2 (33.0-51.0) % MCV 91 (80-100) fL MCH 31 (26-34) pg MCHC 34 (32-36) gm/dL RDW Coeff of Destiny 12.4 (11.5-15.5) % Plt Count 212 (140-440) K/uL Neut % (Auto) 66.1 (42.0-72.0) % Lymph % (Auto) 23.5 (20-44) % [place] % (Auto) 6.7 (0.0-11.0) % Eos % (Auto) 3.1 (0.0-7.0) % Baso % (Auto) 0.4 (0.0-3.0) % Neut # (Auto) 3.18 (1.7-7.0) K/uL Lymph # (Auto) 1.13 (0.90-2.90) K/uL [place] # (Auto) 0.30 (0.00-0.90) K/UL Eos # (Auto) 0.15 (0.00-0.50) K/uL Baso # (Auto) 0.02 (0.00-0.30) K/uL Abs Immat Gran (auto) 0.01 (0.00-0.30) K/uL Imm/Tot Granulo (auto) 0.2 % Sodium 138 (135-149) mmol/L Potassium 4.0 (3.6-5.1) mmol/L Chloride 105 (96-114) mmol/L Carbon Dioxide 27 (20-32) mmol/L Anion Gap 6 L (7-15) mEq/L BUN 12 (5-24) mg/dL Creatinine 0.7 (0.5-1.5) mg/dL Estimated Creat Clear 124.52 Estimated GFR 113 ml/min Glucose 80 (60-115) mg/dL Calcium 8.9 (8.4-10.6) mg/dL Total Creatine Kinase 67 (41-117) U/L C-Reactive Protein < 0.5 L (0.5-1.0) mg/dL Lab Acknowledgement Test Added <Farzaneh Urena MD - Last Filed: 02/24/25 14:42> Imaging Data CT scan - head: Attestation: I have reviewed the pertinent imaging results. <Nisha Bell MD - Last Filed: 02/24/25 13:30> My impression: I do not note any acute brain abnormalities. No evidence of large tumor or bleeding. <Nisha Bell MD - Last Filed: 02/24/25 13:30> Radiologist's impression: There is no intra-axial or extra-axial fluid collection. There is no mass effect or midline shift. The ventricles and sulci are normal in size and position for age. The brain parenchyma is grossly preserved in attenuation and guo-white differentiation. The orbits and their contents are grossly within normal limits. The bony calvarium is grossly intact. The paranasal sinuses are clear. The mastoid air cells are well aerated. Impression: No acute intracranial abnormality. <Nisha Bell MD - Last Filed: 02/24/25 13:30> Cervical spine CT: Attestation: I have reviewed the pertinent imaging results. <Nisha Bell MD - Last Filed: 02/24/25 13:30> Radiologist's impression: The cervical vertebral body heights are grossly maintained with minimal endplate subchondral cystic changes. There is mild positional versus spasmodic reversal of the normal cervical lordosis. There is no displaced fracture or dislocation. Mild degenerative disc disease with disc height loss and marginal osteophyte formation worst at the C5-C6 and C6-C7 levels. The facets are well imbricated. The paraspinous soft tissues are grossly within normal limits. Impression: Mild multilevel degenerative changes of the cervical spine with minimal positional versus spasmodic reversal of the normal cervical lordosis. No evidence of acute osseous abnormality. <Nisha Bell MD - Last Filed: 02/24/25 13:30> MRI - head: Attestation: I have reviewed the pertinent imaging results. <Farzaneh Del Angel MD - Last Filed: 02/24/25 14:42> Radiologist's impression: Patient: [facility] Facility:?[facility] Patient ID:?[id number] Site Patient ID:?[id number]. Site :?1985 Study:?MRI-Head W/ and W/O Cont 15 CC DOTAREM-02/24/2025 1:17:20 PM Ordering Physician:?Arabella Cameron Final Report: Indication: ABNORMAL HEAD MOVEMENT. Technique: Multisequence multiplanar MRI brain without and with 15 mL of Dotarem intravenous contrast. Comparison: Same-day CT brain. Findings: The ventricles, sulci and gyri are normal size, shape and contour for age. The midline structures are centrally located with no evidence of shift. There are no suspicious intra or extra-axial fluid collections. No region of restricted diffusion or suspicious regions of abnormal parenchymal enhancement. Expected flow voids in the cavernous carotids and basilar artery. Impression: No acute intracranial hemorrhage, infarct, mass effect, or abnormal enhancement. Dictated by José Manuel Simpson MD @ 02/24/2025 1:33:16 PM (Electronic Signature) <Farzaneh Urena MD - Last Filed: 02/24/25 14:42> MRI neck angio: Attestation: I have reviewed the pertinent imaging results. <Farzaneh Del Angel MD - Last Filed: 02/24/25 14:42> Radiologist's impression: Patient: SG MARTINEZ Facility:?[facility] Patient ID:?[id number] Site Patient ID:?[id number]. Site :?1985 Study:?MRI-Neck Angio W/ and W/O Cont 15 CC DOTAREM-02/24/2025 1:17:45 PM Ordering Physician:?Arabella Cameron Final Report: INDICATION: ABNORMAL HEAD MOVEMENT TECHNIQUE: TOF and Gordon bolus MRA of the neck with 3D MIP reconstructions provided. All measurements are based on NASCET criteria. No comparisons. FINDINGS: The visualized cervical carotids and vertebral arteries are unremarkable. Specifically, no evidence of suspicious narrowing or aneurysmal dilatation. IMPRESSION: Unremarkable MRA of the neck as far as visualized. Dictated by José Manuel Simpson MD @ 02/24/2025 1:37:45 PM (Electronic Signature) <Farzaneh Urena MD - Last Filed: 02/24/25 14:42> Discharge Plan Discharge Clinical Impression: Cervical muscle pain, Muscle twitching <Nisha Bell MD - Last Filed: 02/24/25 13:30> Patient Disposition: Home, Self-Care <Nisha Bell MD - Last Filed: 02/24/25 13:30> Condition: Stable <Nisha Bell MD - Last Filed: 02/24/25 13:30> Instructions: Neck Pain (ED) <Nisha Bell MD - Last Filed: 02/24/25 13:30> Additional Instructions: Try the Flexeril as needed for discomfort. See if it does help the morning abnormal head movements. Do recommend taking it at bedtime. This can be sedating, do not recommend driving or operating machinery if this does make you sedated. It is possible to break the 10 mg tablet in half to 5 mg to help decrease sedative affect during the day. Can use Tylenol and/or ibuprofen per bottle directions as needed for discomfort. Certainly can try heat or ice to your neck and use whichever feels better. If you continue to have symptoms, please follow-up with your primary care provider. <Nisha Bell MD - Last Filed: 02/24/25 13:30> Activity Level: Activity as Tolerated <Nisha Bell MD - Last Filed: 02/24/25 13:30> Activity as Tolerated <Farzaneh Urena MD - Last Filed: 02/24/25 14:42> Prescriptions: New cyclobenzaprine 10 mg tablet 10 mg PO TID PRN (Reason: muscle spasm) Qty: 30 0RF No Action fluoxetine 40 mg capsule 40 mg PO DAILY cetirizine 5 mg tablet 5 mg PO QDAY PRN dextroamphetamine-amphetamine [Adderall XR] 20 mg capsule,extended release 24hr 20 mg PO QAM fluticasone propionate [24 Hour Allergy Relief] 50 mcg/actuation spray,suspension 2 spray intranasal DAILY Rx Instructions: administer into each nostril <Nisha Bell MD - Last Filed: 02/24/25 13:30> Follow Up/Referrals: Provider,Not a Local [Primary Care Provider, Family Practice] <Nisha Bell MD - Last Filed: 02/24/25 13:30> Stand Alone Forms: MyHealth Info Instructions <Nisha Bell MD - Last Filed: 02/24/25 13:30>
--- NOTE | 2025-02-24 09:50 | CRLHL7_ITS ---
For Patients: As a result of the Century Cures Act, medical imaging exams and procedure reports are released immediately into your electronic medical record. You may view this report before your referring provider. If you have questions, please contact your health care provider. Indication: Neck pain, questionable seizure activity Technique: Volumetric multidetector CT images of the cervical spine were obtained without the administration of IV contrast. Comparison: None available. Findings: The cervical vertebral body heights are grossly maintained with minimal endplate subchondral cystic changes. There is mild positional versus spasmodic reversal of the normal cervical lordosis. There is no displaced fracture or dislocation. Mild degenerative disc disease with disc height loss and marginal osteophyte formation worst at the C5-C6 and C6-C7 levels. The facets are well imbricated. The paraspinous soft tissues are grossly within normal limits. Impression: Mild multilevel degenerative changes of the cervical spine with minimal positional versus spasmodic reversal of the normal cervical lordosis. No evidence of acute osseous abnormality. Please note that all CT scans at this facility use dose modulation, iterative reconstruction, and/or weight-based dosing when appropriate to reduce radiation dose to as low as reasonably achievable. Dictated by Ravinder Parish MD @ 02/24/2025 10:25:02 AM (Electronically Signed)
--- NOTE | 2025-02-24 09:50 | CRLHL7_ITS ---
For Patients: As a result of the Century Cures Act, medical imaging exams and procedure reports are released immediately into your electronic medical record. You may view this report before your referring provider. If you have questions, please contact your health care provider. Indication: Neck pain, questionable seizure activity Technique: Volumetric multidetector CT images of the head were obtained without the administration of low osmolar intravenous contrast. Comparison: None available Findings: There is no intra-axial or extra-axial fluid collection. There is no mass effect or midline shift. The ventricles and sulci are normal in size and position for age. The brain parenchyma is grossly preserved in attenuation and guo-white differentiation. The orbits and their contents are grossly within normal limits. The bony calvarium is grossly intact. The paranasal sinuses are clear. The mastoid air cells are well aerated. Impression: No acute intracranial abnormality. Please note that all CT scans at this facility use dose modulation, iterative reconstruction, and/or weight-based dosing when appropriate to reduce radiation dose to as low as reasonably achievable. Dictated by Ravinder Parish MD @ 02/24/2025 10:30:01 AM (Electronically Signed)
[2025-02-24 10:11] LABS: Basophils Absolute Auto 0.02 K/uL (0.00-0.30); Basophils Percent Auto 0.4 % (0.0-3.0); Eosinophils Absolute Auto 0.15 K/uL (0.00-0.50); Eosinophils Percent Auto 3.1 % (0.0-7.0); Hematocrit 41.2 % (33.0-51.0); Hemoglobin* 13.9 gm/dL (12.0-16.0); Immature Granulocytes Abs Auto 0.01 K/uL (0.00-0.30); Immature Granulocytes Pct Auto 0.2 %; Lymphocytes Absolute Auto 1.13 K/uL (0.90-2.90); Lymphocytes Percent Auto 23.5 % (20-44); Mean Corpuscular HGB Conc 34 gm/dL (32-36); Mean Corpuscular Hemoglobin 31 pg (26-34); Mean Corpuscular Volume 91 fL (80-100); Monocytes Percent Auto 6.7 % (0.0-11.0); Neutrophils Absolute Auto 3.18 K/uL (1.7-7.0); Neutrophils Percent Auto 66.1 % (42.0-72.0); Platelet Count* 212 K/uL (140-440); RDW Coefficient of Variation % 12.4 % (11.5-15.5); Red Blood Count 4.53 m/uL (4.00-5.20); White Blood Count* 4.81 K/uL (4.50-11.00)
[2025-02-24 10:16] LABS: Slide Review Reflex No
[2025-02-24 10:25] LABS: Chloride* 105 mmol/L (96-114); Sodium* 138 mmol/L (135-149)
[2025-02-24 10:29] LABS: Anion Gap 6 mEq/L (7-15); Blood Urea Nitrogen* 12 mg/dL (5-24); Calcium* 8.9 mg/dL (8.4-10.6); Carbon Dioxide* 27 mmol/L (20-32); Creatinine* 0.7 mg/dL (0.5-1.5); Est. Creatinine Clearance* 124.52; Estimated Glomerular Filt Rate 113 ml/min; Glucose* 80 mg/dL (60-115)
[2025-02-24 10:32] LABS: C Reactive Protein* < 0.5 mg/dL (0.5-1.0)
--- NOTE | 2025-02-24 11:22 | CRLHL7_ITS ---
For Patients: As a result of the Century Cures Act, medical imaging exams and procedure reports are released immediately into your electronic medical record. You may view this report before your referring provider. If you have questions, please contact your health care provider. INDICATION: ABNORMAL HEAD MOVEMENT TECHNIQUE: TOF and Gordon bolus MRA of the neck with 3D MIP reconstructions provided. All measurements are based on NASCET criteria. No comparisons. FINDINGS: The visualized cervical carotids and vertebral arteries are unremarkable. Specifically, no evidence of suspicious narrowing or aneurysmal dilatation. IMPRESSION: Unremarkable MRA of the neck as far as visualized. Dictated by José Manuel Simpson MD @ 02/24/2025 1:37:45 PM (Electronically Signed)
--- NOTE | 2025-02-24 11:22 | CRLHL7_ITS ---
For Patients: As a result of the Century Cures Act, medical imaging exams and procedure reports are released immediately into your electronic medical record. You may view this report before your referring provider. If you have questions, please contact your health care provider. Indication: ABNORMAL HEAD MOVEMENT. Technique: Multisequence multiplanar MRI brain without and with 15 mL of Dotarem intravenous contrast. Comparison: Same-day CT brain. Findings: The ventricles, sulci and gyri are normal size, shape and contour for age. The midline structures are centrally located with no evidence of shift. There are no suspicious intra or extra-axial fluid collections. No region of restricted diffusion or suspicious regions of abnormal parenchymal enhancement. Expected flow voids in the cavernous carotids and basilar artery. Impression: No acute intracranial hemorrhage, infarct, mass effect, or abnormal enhancement. Dictated by José Manuel Simpson MD @ 02/24/2025 1:33:16 PM (Electronically Signed)
[2025-02-24 13:31] VITALS: BP 141/87; PULSE 53; RESP 16; O2SAT 99
[2025-02-24 14:25] LABS: Creatine Kinase* 67 U/L (41-117)
== END 2025-02-24 14:54 | disposition home or self-care (01) ==
PROVIDERS: Family Medicine; Emergency Provider Family Medicine
DX: M54.2 Cervicalgia (principal); M62.838 Other muscle spasm
CPT/HCPCS: 36415; 70450; 70549; 70553; 72125; 80048; 82550; 85025; 86140; 99284; 99285; A9575